=== PATIENT | female | born 1955 | race Caucasian/White ===

== ENCOUNTER 2016-12-16 10:46 | Emergency (ER) ==
[2016-12-16 10:59] VITALS: BP 170/113; TEMP 97.6; BMI 34.0
[2016-12-16] MEDS ORDERED: ANTIVERT PO STA (11:31)
[2016-12-16] MEDS ORDERED: VALIUM PO STA (11:31)
[2016-12-16 12:12] LABS: BASOPHILS % (AUTO) 0.5 % (0.0-3.0); EOSINOPHILS # (AUTO) 0.1 K/ul (0.0-0.7); EOSINOPHILS % (AUTO) 1.8 % (0.0-7.0); HEMATOCRIT 41.5 % (37.0-47.0); HEMOGLOBIN 14.8 g/dl (12.0-16.0); IMMATURE GRANULOCYTE % (AUTO) 0.3 % (0.0-5.0); LYMPHOCYTES # (AUTO) 0.9 K/uL (0.60-3.4); LYMPHOCYTES % (AUTO) 14.7 (10.0-50.0); MEAN CORPUSCULAR HEMOGLOBIN 30.8 pg (27.0-31.0); MEAN CORPUSCULAR HGB CONC 35.7 (31.8-35.4); MEAN CORPUSCULAR VOLUME 86.3 fl (81.0-99.0); MONOCYTES # (AUTO) 0.4 K/uL (0.4-2.0); MONOCYTES % (AUTO) 6.5 (0-10); NEUTROPHILS # (AUTO) 4.7 K/ul (2.0-6.9); NEUTROPHILS % (AUTO) 76.2; PLATELET COUNT 147 10^3/uL (140-440); RED BLOOD COUNT 4.81 10^6/ul (4.20-5.40); WHITE BLOOD COUNT 6.11 K/ul (4.6-10.2)
[2016-12-16 12:54] LABS: ALANINE AMINOTRANSFERASE 60 U/L (12-78); ALBUMIN 4.3 g/dL (3.4-5.0); ALBUMIN/GLOBULIN RATIO 1.59; ALKALINE PHOSPHATASE 48 U/L (53-141); ANION GAP 14.1; ASPARTATE AMINO TRANSFERASE 33 U/L (15-37); BILIRUBIN,TOTAL 2.28 mg/dL (0.00-1.20); BLOOD UREA NITROGEN 13 mg/dL (7-18); BUN/CREATININE RATIO 18.57; CALCIUM 9.5 mg/dL (8.2-10.2); CARBON DIOXIDE 25 mmol/L (23-31); CHLORIDE 108 mmol/L (98-107); CREATINE KINASE 131 U/L; GLUCOSE 107 mg/dL (82-115); POTASSIUM 4.1 mmol/L (3.5-5.10); SODIUM 143 mmol/L (136-145)
--- NOTE | 2016-12-16 13:10 | CT ---
Exam: CT of the brain without intravenous contrast. Comparison: 02/17/2008. Reason for exam: Positional vertigo. FINDINGS: No acute intracranial hemorrhage, mass effect, ventricular dilatation, or territorial inf arction. The quadrigeminal and ambient cisterns are patent. There is no extraaxial fluid collectio n. The calvarium is intact. The paranasal sinuses and mastoid air cells are unopacified. Impression: No acute intracranial findings. Report faxed to [phone] hours on 12/16/2016
[2016-12-16 13:16] LABS: CREATINE KINASE MB 1.6 ng/ml (0.0-3.6)
--- NOTE | 2016-12-16 13:25 | ED.PDOC ---
General ED Provider: Dr. FREDERICK HARRIS Chief Complaint: Dizziness Stated Complaint: dizziness Time Seen by Physician: 10:55 (no neuro deficit walked heel to te no ATXIA noted ) Mode of Arrival: Walk-In Information Source: Patient Exam Limitations: No limitations Primary Care Provider: OLIVIA MARTINEZ Nursing and Triage Documentation Reviewed and Agree: Yes (this morning) Neurological Complaint Exam - Dizziness Complaint/Exam Last Known Well: 9 am today Onset: Gradual Duration: present since am Symptoms Are: Still present Episodes Lasting: Hours Initial Severity: Mild Current Severity: Mild Character: Reports: Dizzy Aggravating: Reports: Position change Alleviating: Reports: Rest, Lying down Associated Signs and Symptoms: Denies: Nausea, Vomiting, Diaphoresis, Tinnitus, Chest pain, Short of air, Palpitations, Unsteady gait, GI blood loss, Visual changes, Decreased oral intake, Change in medication, Change in diet, OTC meds, Loss of balance Review of Systems - Review Of Systems Constitutional: Reports: No symptoms Eyes: Reports: No symptoms Ears, Nose, Mouth, Throat: Reports: No symptoms Respiratory: Reports: No symptoms Cardiac: Reports: No symptoms GI: Reports: No symptoms : Reports: No symptoms Musculoskeletal: Reports: No symptoms Skin: Reports: No symptoms Neurological: Reports: Other (vertigo) Endocrine: Reports: No symptoms Hematologic/Lymphatic: Reports: No symptoms All Other Systems: Reviewed and Negative Past Medical History - Past Medical History Previously Healthy: Yes Endocrine: Reports: Hypothyroid Cardiovascular: Reports: Hypertension Respiratory: Reports: None Hematological: Reports: None Gastrointestinal: Reports: None Genitourinary: Reports: None Neuro/Psych: Reports: None Musculoskeletal: Reports: None Cancer: Reports: None Last Menstrual Period: unknown - Surgical History General Surgical History: Reports: None - Family History Family History: Reports: None - Social History Smoking Status: Former smoker Hx Substance Use: No Alcohol Screening: Occasionally Physical Exam - Physical Exam Appearance: Well-appearing, No pain distress, Well-nourished Eyes: ROLY, EOMI, Conjunctiva clear ENT: Ears normal, Nose normal, Oropharynx normal Respiratory: Airway patent, Breath sounds clear, Breath sounds equal, Respirations nonlabored Cardiovascular: RRR, Pulses normal, No rub, No murmur GI/: Soft, Nontender, No masses, Bowel sounds normal, No Organomegaly Musculoskeletal: Normal strength, ROM intact, No edema, No calf tenderness Skin: Warm, Dry, Normal color Neurological: Sensation intact, Motor intact, Reflexes intact, Cranial nerves intact, Alert, Oriented Psychiatric: Affect appropriate, Mood appropriate Interpretation - Radiology Interpretation Radiology Interpretation By: Radiologist Radiology Results: No acute changes - 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4 Plt Count 147 Immature Gran % (Auto) 0.3 Neut % (Auto) 76.2 Lymph % (Auto) 14.7 Green % (Auto) 6.5 Eos % (Auto) 1.8 Baso % (Auto) 0.5 Immature Gran # (Auto) 0.0 Neut # 4.7 Lymph # 0.9 Green # 0.4 Eos # 0.1 Baso # 0.0 Sodium 143 Potassium 4.1 Chloride 108 H Carbon Dioxide 25 Anion Gap 14.1 BUN 13 Creatinine 0.70 Estimated GFR (MDRD) 85.00 BUN/Creatinine Ratio 18.57 Glucose 107 Calcium 9.5 Total Bilirubin 2.28 H AST 33 ALT 60 Alkaline Phosphatase 48 L Total Creatine Kinase 131 CK-MB (CK-2) 1.6 CK-MB (CK-2) % 1.26125 Troponin I < 0.0100 Total Protein 7.0 Albumin 4.3 Globulin 2.7 Albumin/Globulin Ratio 1.59 TSH 0.534 Free T4 1.16 Orders Category Date Time Status EKG-(ED ONLY) Stat CARDIO 12/16/16 11:31 Completed CBC W/ AUTO DIFF Stat LAB 12/16/16 12:00 Completed COMPREHENSIVE METABOLIC PANEL Stat LAB 12/16/16 12:00 Completed CREATINE KINASE Stat LAB 12/16/16 12:00 Completed FREE T4 (FREE THYROXINE) Stat LAB 12/16/16 12:00 Completed THYROID STIMULATING HORMONE Stat LAB 12/16/16 12:00 Completed TROPONIN I Stat LAB 12/16/16 12:00 Completed Diazepam [Valium] MEDS 12/16/16 11:31 Discontinued 5 mg PO ONCE STA Meclizine HCl [Antivert] MEDS 12/16/16 11:31 Discontinued 25 mg PO ONCE STA CT HEAD W/O CONTRAST Stat RADS 12/16/16 11:31 Completed Medications Discontinued Medications Generic Name Dose Route Start Last Admin Trade Name Francia PRN Reason Stop Dose Admin Diazepam 5 mg 12/16/16 11:31 12/16/16 11:54 Valium PO 12/16/16 11:32 5 mg ONCE STA Administration Meclizine HCl 25 mg 12/16/16 11:31 12/16/16 11:54 Antivert PO 12/16/16 11:32 25 mg ONCE STA Administration Vital Signs: Temp Pulse Resp BP Pulse Ox 12/16/16 10:48 97.6 F 85 20 170/113 H 96 Departure - Departure Time of Disposition: 13:27 Disposition: HOME SELF-CARE Discharge Problem: Dizziness Instructions: Vertigo (ED) Condition: Good Pt referred to PMD for follow-up: Yes Additional Instructions: Please call your Family Physician as soon as possible to schedule a follow-up appointment. Allergies/Adverse Reactions: Allergies codeine Adverse Reaction (Verified 04/26/13 18:15) hydromorphone [From Dilaudid] Adverse Reaction (Verified 12/16/16 10:57) Iodinated Contrast- Oral and IV Dye [Iodinated Contrast Media - IV Dye] Adverse Reaction (Verified 04/26/13 18:15) phenazopyridine HCl [From Pyridium] Adverse Reaction (Verified 04/26/13 18:15) Home Medications: Ambulatory Orders Cyclobenzaprine HCl [Flexeril] 10 mg PO DAILY 04/26/13 Levothyroxine Sodium [Synthroid] 150 mcg PO DAILY 04/26/13 Metoprolol Succinate [Toprol Xl] 25 mg PO BID 04/26/13 Piroxicam [Feldene] 20 mg PO DAILY 04/26/13 Ascorbic Acid [Vitamin C] 1,000 mg PO DAILY 12/16/16 Calcium Carb/Magnesium Cmb #10 [Kofi-Mag Tablet Chewable] 1 each PO DAILY Cholecalciferol (Vitamin D3) [Vitamin D3] 5,000 unit PO WEEKLY 12/16/16 Clonidine HCl [Catapres] 0.1 mg PO TID PRN 12/16/16 Lactobacillus Combo No.10 [Probiotic] 1 each PO DAILY 12/16/16 Losartan Potassium [Cozaar] 50 mg PO DAILY 12/16/16 Multivitamin [One Daily Multivitamin] 1 each PO DAILY 12/16/16
== END 2016-12-16 13:48 | disposition home or self-care (01) ==
LOC: ED 10:46
DX: R42 Dizziness and giddiness (principal); E03.9 Hypothyroidism, unspecified; I10 Essential (primary) hypertension; Z79.899 Other long term (current) drug therapy
CPT/HCPCS: 36415; 80053; 82550; 82553; 84439; 84443; 84484; 85025; 93005; 93010; 99283

== ENCOUNTER 2017-04-01 10:31 | Outpatient (CLI) ==
[2017-04-01 11:01] LABS: ANION GAP 14.1; BUN/CREATININE RATIO 23.94; CALCIUM 9.5 mg/dL (8.2-10.2); CREATININE 0.71 mg/dL (0.60-1.30); POTASSIUM 4.1 mmol/L (3.5-5.10)
== END 2017-04-01 10:32 | disposition home or self-care (01) ==
LOC: LAB 10:31
PROVIDERS: ATTEND Family Medicine
DX: I10 Essential (primary) hypertension (principal)
CPT/HCPCS: 36415; 80048

== ENCOUNTER 2017-10-25 07:28 | Outpatient (CLI) | payer OTHER | END 2017-10-25 07:29 | disposition home or self-care (01) | LOC: LAB 07:28 | PROVIDERS: ATTEND Internal Medicine Rheumatology | DX: E03.9 Hypothyroidism, unspecified (principal); Z00.00 Encounter for general adult medical examination without abnormal findings; R00.0 Tachycardia, unspecified; E89.40 Asymptomatic postprocedural ovarian failure; K76.0 Fatty (change of) liver, not elsewhere classified; R73.01 Impaired fasting glucose; I10 Essential (primary) hypertension; E78.5 Hyperlipidemia, unspecified; M06.9 Rheumatoid arthritis, unspecified | CPT/HCPCS: 36415; 80053; 80061; 82306; 83036; 84439; 84443; 85025; 86803 ==

== ENCOUNTER 2018-10-20 09:12 | Emergency (ER) | payer OTHER ==
[2018-10-20 09:26] VITALS: BP 171/94; TEMP 99.5; BMI 35.6
--- NOTE | 2018-10-20 10:21 | ED.PDOC ---
General ED Provider: Dr. FREDERICK HARRIS Chief Complaint: Abdominal Pain Stated Complaint: Epigastric/abdominal pain radiating to the sides but not to the thoracic spine. Patient has history of hiatal hernia and in the past has had appendectomy and cholecystectomy. Patient denies any abdominal trauma and chest pain. Time Seen by Physician: 09:15 Mode of Arrival: Walk-In Information Source: Patient Exam Limitations: No limitations Primary Care Provider: OLIVIA MARTINEZ Nursing and Triage Documentation Reviewed and Agree: Yes Does patient meet sepsis criteria?: No System Inflammatory Response Syndrome: Not Applicable Sepsis Protocol: For patient's 13 years and over: Temp is 96.8 and below OR 101 and greater Pulse >90 BPM Resp >20/minute Acutely Altered Mental Status Are patient's symptoms suggestive of a new infection, such as: -Pneumonia -Skin, Soft Tissue -Endocarditis -UTI -Bone, Joint Infection -Implantable Device -Acute Abdominal Infection -Wound Infection -Meningitis -Blood Stream Catheter Infection -Unknown GI Complaint Exam - Abdominal Pain Complaint/Exam Onset: Gradual Duration: chronic issue but worse today Symptoms Are: Still present Timing: Intermittent Initial Severity: Moderate Current Severity: Mild Location of Pain: Epigastric Radiates To: Denies: Chest, Back, Flank, LLQ, RLQ, Inguinal Character: Reports: Aching Aggravating: Reports: None Alleviating: Reports: None Associated Signs and Symptoms: Denies: Diaphoresis, Fever, Cough, Chest pain, Dizziness, Back pain, Constipation, Blood in stool, Dysuria, Urinary frequency, Decreased urine output, Decreased appetite, Vaginal bleeding, Vaginal discharge , Nausea, Vomiting, Diarrhea, Sore throat, Decreased activity Related History: Reports: Similar episode AAA Risk Factors: Reports: Hypertension Cardiac Risk Factors: Reports: Hypertension Ovarian Torsion Risk Factors: Reports: None Surgical Obstruction Risk Factors: Reports: None Related Surgical History: Reports: Cholecystectomy, Appendectomy Patient Rh Status: Unknown Abdominal Findings: Present: None Differential Diagnoses: Bowel Obstruction, Constipation, Diverticulitis, Gastroenteritis, Pancreatitis Review of Systems - Review Of Systems Constitutional: Reports: No symptoms Eyes: Reports: No symptoms Ears, Nose, Mouth, Throat: Reports: No symptoms Respiratory: Reports: No symptoms Cardiac: Reports: No symptoms GI: Reports: Abdominal pain : Reports: No symptoms Musculoskeletal: Reports: No symptoms Skin: Reports: No symptoms Neurological: Reports: No symptoms Endocrine: Reports: No symptoms Hematologic/Lymphatic: Reports: No symptoms All Other Systems: Reviewed and Negative Past Medical History - Past Medical History Previously Healthy: Yes Endocrine: Reports: Hypothyroid Cardiovascular: Reports: Hypertension Respiratory: Reports: None Hematological: Reports: None Gastrointestinal: Reports: None Genitourinary: Reports: None Neuro/Psych: Reports: None Musculoskeletal: Reports: None Cancer: Reports: None Last Menstrual Period: hysterectomy - Surgical History General Surgical History: Reports: None - Family History Family History: Reports: None - Social History Smoking Status: Former smoker Hx Substance Use: No Alcohol Screening: None Physical Exam - Physical Exam Appearance: Well-appearing, No pain distress, Well-nourished Eyes: ROLY, EOMI, Conjunctiva clear ENT: Ears normal, Nose normal, Oropharynx normal Respiratory: Airway patent, Breath sounds clear, Breath sounds equal, Respirations nonlabored Cardiovascular: RRR, Pulses normal, No rub, No murmur GI/: Soft, Nontender, No masses, Bowel sounds normal, No Organomegaly Musculoskeletal: Normal strength, ROM intact, No edema, No calf tenderness Skin: Warm, Dry, Normal color Neurological: Sensation intact, Motor intact, Reflexes intact, Cranial nerves intact, Alert, Oriented Psychiatric: Affect appropriate, Mood appropriate Critical Care Note - Critical Care Note Total Time (mins): 0 Course - Course Hematology/Chemistry: 10/20/18 10:05 10/20/18 10:05 Orders, Labs, Meds: Lab Review 10/20/18 10/20/18 10:05 10:05 WBC 5.16 RBC 4.96 Hgb 15.0 Hct 44.3 MCV 89.3 MCH 30.2 MCHC 33.9 RDW Coeff of Camacho 12.1 Plt Count 161 Immature Gran % (Auto) 0.2 Neut % (Auto) 66.8 Lymph % (Auto) 23.3 [place] % (Auto) 6.8 Eos % (Auto) 2.5 Baso % (Auto) 0.4 Immature Gran # (Auto) 0.0 Neut # (Auto) 3.5 Lymph # (Auto) 1.2 [place] # (Auto) 0.4 Eos # (Auto) 0.1 Baso # (Auto) 0.0 Sodium 140.5 Potassium 4.31 Chloride 102.8 Carbon Dioxide 28.3 Anion Gap 13.71 BUN 13.1 Creatinine 0.54 L Estimated GFR (MDRD) 114.00 BUN/Creatinine Ratio 24.25 Glucose 114.7 H Calcium 10.22 H Total Bilirubin 1.72 H AST 28.6 ALT 35.2 H Alkaline Phosphatase 48.4 L Total Protein 7.92 Albumin 4.98 Globulin 2.94 Albumin/Globulin Ratio 1.69 Amylase 105.1 Lipase 144.8 Orders Category Date Time Status AMYLASE Stat LAB 10/20/18 10:05 Completed CBC W/ AUTO DIFF Stat LAB 10/20/18 10:05 Completed COMPREHENSIVE METABOLIC PANEL Stat LAB 10/20/18 10:05 Completed LIPASE Stat LAB 10/20/18 10:05 Completed URINALYSIS C & S IF INDICATED Stat LAB 10/20/18 09:[address] ABDOMEN/PELVIS WO CONTRAST Stat RADS 10/20/18 09:[address] CHEST W/O CONTRAST Stat RADS 10/20/18 09:43 Completed Vital Signs: Temp Pulse Resp BP Pulse Ox 10/20/18 09:13 99.5 F 73 20 171/94 H 92 L Departure - Departure Time of Disposition: 10:50 Disposition: HOME SELF-CARE Discharge Problem: Abdominal pain, Hiatal hernia, Kidney stone on right side Instructions: Acute Abdominal Pain (ED), Hiatal Hernia (ED), Kidney Stones (ED) Condition: Good Pt referred to PMD for follow-up: Yes IPMP verified?: No Additional Instructions: Please call your Family Physician as soon as possible to schedule a follow-up appointment. Please make sure you follow up with your doctor. I would prefer to conduct a contrast study, but you are allergic to the . Please return if the pain worsens or your status changes. Allergies/Adverse Reactions: Allergies codeine Adverse Reaction (Verified 10/20/18 09:24) hydromorphone [From Dilaudid] Adverse Reaction (Verified 10/20/18 09:24) Iodinated Contrast- Oral and IV Dye [Iodinated Contrast Media - IV Dye] Adverse Reaction (Verified 10/20/18 09:24) phenazopyridine HCl [From Pyridium] Adverse Reaction (Verified 10/20/18 09:24) Home Medications: Ambulatory Orders Cyclobenzaprine HCl [Flexeril] 10 mg PO BEDTIME 04/26/13 Levothyroxine Sodium [Synthroid] 175 mcg PO BEDTIME 04/26/13 Metoprolol Succinate [Toprol Xl] 100 mg PO BEDTIME 12/26/13 Piroxicam [Feldene] 20 mg PO BEDTIME 04/26/13 Ascorbic Acid [Vitamin C] 1,000 mg PO BEDTIME 12/16/16 Calcium Carb/Magnesium Ox,Carb [Kofi-Mag Tablet Chewable] 1 each PO BEDTIME 12/16 Lactobacillus Combo No.10 [Probiotic] 1 each PO BEDTIME 12/16/16 Losartan Potassium [Cozaar] 50 mg PO BEDTIME 12/16/16 Ubidecarenone [Co Q-10] 100 mg PO BEDTIME 10/20/18 Vitamin D3/Vitamin K2 (Mk4) [K2 Plus D3 Tablet] 1 each PO BEDTIME 10/20/18
--- NOTE | 2018-10-20 10:39 | CT ---
EXAM: CT of the abdomen pelvis without contrast History: Epigastric abdominal pain, history of appendectomy and bowel surgery. Technique: Multiplanar CT images through the abdomen pelvis were obtained without the administration of IV contrast Findings: Small hiatal hernia. Subsegmental atelectasis seen within the lower lungs. No acute osse ous abnormalities. Status post cholecystectomy. The liver demonstrates nodular surface contour. There are several hypo attenuating liver lesions measuring up to 1.8 cm which are indeterminate. Spleen is upper limits of normal in size. 2 mm calculus within the right kidney. No left renal calculi. No hydronephrosis. No ureteral calculi. No peripancreatic inflammation. Adrenal glands are unremarkable. No bowel obs truction. No free air and no ascites. No bladder wall thickening. No perirectal inflammation. Mos t of the colon is not well distended. Status post appendectomy. No abdominal aortic aneurysm. No p athologically enlarged lymph nodes. Impression: 1. No acute intra-abdominal or pelvic process. 2. Nonobstructing right nephrolithiasis. 3. Subtle nodular surface contour of the liver could indicate early changes of cirrhosis. 4. Indeterminate hypoattenuating liver lesions. Recommend further evaluation with outpatient MRI li brenna mass protocol. 5. Small hiatal hernia
--- NOTE | 2018-10-20 10:46 | CT ---
Examination: Chest CT without contrast Clinical history: Lower chest and epigastric pain Detailed thin slice noncontrast axial images extend from neck base through the hemidiaphragms. Left lobe of the thyroid is larger than the right. Subglottic trachea is of adequate caliber. No signifi cant superior mediastinal, distal peritracheal, or or aortopulmonic window adenopathy. No aortic seg ment dilatation. Pulmonary artery caliber is satisfactory. No enlargement of the heart. Small hiat al hernia. A round 1 cm low density focus is noted in the medial aspect the left lobe of the liver. Density measurements do not suggest the presence of a cyst. No other nodules are noted through the upper one half of the liver. Spleen does not appear enlarged. No adrenal mass. Lung parenchymal window setting review shows emphysematous changes in the upper lobes, right greater than left. There is no coalescent infiltrate. Subsegmental atelectasis in the on the left lingula. There is additional atelectasis in the central left lower lobe. Minimal atelectasis in the right me dial basilar region. No vascular congestion. Impression: 1. 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 Small areas of subsegmental a telectasis. 2. No cardiac enlargement. Coronary artery calcific change or pericardial effusion. 3. Small to moderate-sized hiatal hernia. 4. Small nonspecific 1 cm, low density nodule in medial left liver lobe. No comparison abdomen CT e xaminations.
== END 2018-10-20 11:05 | disposition home or self-care (01) ==
LOC: ED 09:12
DX: N20.0 Calculus of kidney (principal); R10.13 Epigastric pain; K44.9 Diaphragmatic hernia without obstruction or gangrene; I10 Essential (primary) hypertension; E03.9 Hypothyroidism, unspecified; Z87.19 Personal history of other diseases of the digestive system; Z79.899 Other long term (current) drug therapy
CPT/HCPCS: 36415; 80053; 81001; 82150; 83690; 85025; 93005; 93010; 99283

== ENCOUNTER 2018-10-24 09:05 | Day surgery (SDC) ==
[2018-10-24 10:25] VITALS: TEMP 97.5
[2018-10-24] MEDS ORDERED: DIPRIVAN 20 ML VIAL IVP ONE (11:00)
[2018-10-24] MEDS ORDERED: VERSED ONE (11:00)
--- NOTE | 2018-10-25 09:38 | OP ---
INDICATIONS FOR PROCEDURE: 63-year-old female presents for endoscopy exam. She had a couple episodes of acute epigastric pain. She described it as a sharp stabbing pain. She is asymptomatic now. She presents for endoscopy. MEDICATIONS: SEE ANESTHESIA NOTES. PROCEDURE: 1. ENDOSCOPY, ESOPHAGEAL BIOPSY, MACANESE DILATATION. REPORT: The risks, benefits, alternatives and limitations were discussed in detail with the patient. Informed consent was obtained. After adequate sedation was achieved, the video endoscope was introduced in the posterior pharynx and esophagus under direct vision and I easily advanced down to the second portion of the duodenum. I then slowly withdrew. The duodenal mucosa appeared unremarkable as did the duodenal bulb. The antrum and body were relatively unremarkable. The scope was retroflexed to look at the cardia and fundus which revealed a small hiatal hernia. The scope was anteflexed and withdrawn back through the esophagus. There was a 2 to 3 cm sliding hiatal hernia. At the GE junction there was one break in the mucosa consistent with mild Grade A reflux esophagitis. There was also a circumferential esophageal stricture causing mild luminal narrowing. I did biopsy the area of esophagitis for histological review. The remaining esophagus appeared unremarkable. I then advanced the scope back down into the gastric lumen. I placed a guidewire and then withdrew the scope. Over the guidewire I easily advanced the 54 [place] dilator. The patient tolerated the procedure well with stable vital signs and pulse oximetry throughout. Of note, image capturing was not available during this procedure so no pictures were obtained. IMPRESSION: 1. LA Grade A reflux esophagitis. 2. Distal esophageal stricture dilated as above. 3. Small 2 to 3 cm sliding hiatal hernia. RECOMMENDATIONS: 1. Strict reflux precautions. 2. Await esophageal biopsy results. 3. She was prescribed Omeprazole yesterday and I will advise her to take this every morning as directed. 4. Followup in the office with Kay as scheduled in approximately four weeks. CC: DR. MICHELLE GONZALEZ
[2018-10-25 11:40] VITALS: BP 142/58
== END 2018-10-24 12:15 | disposition home or self-care (01) ==
LOC: SURG 09:05
PROVIDERS: ATTEND Internal Medicine Gastroenterology
DX: R10.13 Epigastric pain (principal); K20.9 Esophagitis, unspecified; K22.2 Esophageal obstruction

== ENCOUNTER 2023-11-28 02:52 | Observation (INO) ==
--- NOTE | 2023-11-28 03:28 | ED.PDOC ---
General ED Provider: Dr. FREDERICK NASCIMENTO MD Chief Complaint: Dizziness Stated Complaint: Patient history of hypertension and hypothyroidism states she awakened from sleep with dizziness and lightheadedness exacerbated by motion of her head. Patient had transient chest tightness associate with nausea and dry heaves, denies vomiting, dyspnea, palpitations, diaphoresis, diarrhea, urinary symptoms abdominal pain. Time Seen by Provider: 11/28/23 03:16 Mode of Arrival: Ambulance Information Source: Patient Exam Limitations: No limitations Primary Care Provider: OLIVIA MARTINEZ Nursing and Triage Documentation Reviewed and Agree: Yes What is Opioid Naive?: *Opioid Naive implies the patient is not already taking opioids or not chronically receiving opioids on a daily basis. *PRN dosing is not "usually" associated with tolerance. *Patients are at higher risk of over-sedation and aspiration. What is Opioid Tolerant?: *Opioid Tolerance implies less than the expected response to an opioid. *Acquired tolerance is defined by the patient taking 60mg of oral morphine daily (or equianalgesic dose of another opioid) for 1 week or more. *Often associated with chronic pain. *May take more than usual dose to achieve desired pain control. Review of Systems Review Of Systems Constitutional: Reports Weakness Eyes: Reports No symptoms Ears, Nose, Mouth, Throat: Reports No symptoms Respiratory: Reports No symptoms Cardiac: Reports No symptoms GI: Reports Nausea : Reports No symptoms Musculoskeletal: Reports No symptoms Skin: Reports No symptoms Neurological: Reports Other (Lightheadedness and dizziness) Endocrine: Reports No symptoms Hematologic/Lymphatic: Reports No symptoms All Other Systems: Reviewed and Negative [facility] Medical History Thyroid disease E07.9 - Disorder of thyroid, unspecified (ICD-10) 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) HTN (hypertension) I10 - Essential (primary) hypertension (ICD-10) Left ventricular dysfunction I51.9 - Heart disease, unspecified (ICD-10) Family History Other No pertinent family history Social History Smoking and tobacco status: Never smoker Surgical History H/O: hysterectomy Z90.710 - Acquired absence of both cervix and uterus (ICD-10) Hx of appendectomy Z90.49 - Acquired absence of other specified parts of digestive tract (ICD- 10) Hx of cholecystectomy Z90.49 - Acquired absence of other specified parts of digestive tract (ICD- 10) Female Reproductive History Menstrual Hx Hysterectomy: Yes Hx Tubal Ligation: No Physical Exam Physical Exam Appearance: Reports Well-appearing Ill-appearing: None Pain Distress: None Eyes: Reports EOMI and Conjunctiva clear ENT: Reports Ears normal, Nose normal and Oropharynx normal Neck: Supple Respiratory: Reports Airway patent, Breath sounds clear and Breath sounds equal Cardiovascular: Reports RRR, Pulses normal, No rub and No murmur GI/: Reports Soft, Nontender and No masses Musculoskeletal: Reports Normal strength, ROM intact and No edema Skin: Reports Warm and Dry Neurological: Reports Sensation intact, Motor intact, Reflexes intact, Cranial nerves intact and Alert Psychiatric: Reports Affect appropriate and Mood appropriate Critical Care Note Critical Care Note Total Critical Care Time (mins): 0 Course Course 11/28/23 03:28 11/28/23 03:28 Orders, Labs, Meds: Lab Review 11/28/23 11/28/23 11/28/23 03:28 05:08 06:35 WBC 7.59 RBC 4.89 Hgb 14.6 Hct 43.5 MCV 89.0 MCH 29.9 MCHC 33.6 RDW Coeff of Camacho 12.5 Plt Count 149 Immature Gran % (Auto) 0.4 Neut % (Auto) 78.8 H Lymph % (Auto) 12.4 [place] % (Auto) 6.6 Eos % (Auto) 1.4 Baso % (Auto) 0.4 Neut # (Auto) 6.0 Lymph # (Auto) 0.9 [place] # (Auto) 0.5 Eos # (Auto) 0.1 Baso # (Auto) 0.0 Immature Gran # (Auto) 0.0 Sodium 138.6 Potassium 3.87 Chloride 105.8 Carbon Dioxide 22.9 Anion Gap 13.77 BUN 17.1 H Creatinine 0.53 L Estimated GFR (MDRD) 115.00 BUN/Creatinine Ratio 32.26 Glucose 147.5 H Calcium 9.86 Magnesium 1.81 Total Bilirubin 1.58 H AST 36.0 ALT 26.7 Alkaline Phosphatase 34.4 L Troponin I < 0.012 < 0.012 Total Protein 7.69 Albumin 4.92 Globulin 2.77 Albumin/Globulin Ratio 1.77 Urine Color Yellow Urine Clarity Clear Urine pH 7.5 Ur Specific [place] 1.020 Urine Protein Negative Urine Glucose (UA) Negative Urine Ketones Negative Urine Blood Trace-intact H Urine Nitrite Negative Urine Bilirubin Negative Urine Urobilinogen 0.2 Ur Leukocyte Esterase Negative Urine Microscopic RBC 0-2 Urine Microscopic WBC 0-2 Ur Squamous Epith Cells 0-2 Orders Category Date Time Status EKG-(ED ONLY) Stat CARDIO 11/28/23 03:28 Completed Operations [place] [ED CONTACT WORKER LITHOGRAPHY APPLIED] .ONCE EMERGENCY 11/28/23 03:28 Active CBC W/ AUTO DIFF Stat LAB 11/28/23 03:28 Completed CMP [COMPREHENSIVE METABOLIC PANEL] Stat LAB 11/28/23 03:28 Completed MAGNESIUM Stat LAB 11/28/23 03:28 Completed TROPONIN I Stat LAB 11/28/23 03:28 Completed TROPONIN I Stat LAB 11/28/23 06:35 Completed URINALYSIS C & S IF INDICATED Stat LAB 11/28/23 05:08 Completed Hydralazine HCl Meds 11/28/23 03:28 Discontinued 20 mg IVP ONCE STA Meclizine HCl [Antivert] Meds 11/28/23 04:05 Discontinued 25 mg PO ONCE STA Ondansetron HCl/Pf [Zofran 4 mg/2 ml] Meds 11/28/23 04:29 Discontinued 4 mg IM ONCE STA Ondansetron HCl/Pf [Zofran 4 mg/2 ml] Meds 11/28/23 03:28 Discontinued 4 mg IVP ONCE STA Pantoprazole Sodium [Protonix] Meds 11/28/23 03:28 Discontinued 40 mg IVP ONCE ONE Sodium Chloride 0.9% [Sodium Chloride] 1,000 ml Meds 11/28/23 03:28 Active IV 100 mls/hr CHEST, 1V AP ONLY Stat RADS 11/28/23 04:[address] HEAD W/O CONTRAST Stat RADS 11/28/23 04:32 Ordered Medications Generic Name Dose Route Start Last Admin Trade Name Freq PRN Reason Stop Dose Admin Sodium Chloride 1,000 mls @ 100 mls/hr 11/28/23 03:28 11/28/23 03:40 Sodium Chloride IV 11/28/23 13:27 100 mls/hr .Q10H ONE Administration Discontinued Medications Generic Name Dose Route Start Last Admin Trade Name Francia PRN Reason Stop Dose Admin Hydralazine HCl 20 mg 11/28/23 03:28 11/28/23 03:42 Hydralazine Hcl 20 Mg/Ml Sdv IVP 11/28/23 03:29 20 mg ONCE STA Administration Meclizine HCl 25 mg 11/28/23 04:05 11/28/23 04:24 Meclizine Hcl 25 Mg Tablet PO 11/28/23 04:06 25 mg ONCE STA Administration Ondansetron HCl 4 mg 11/28/23 03:28 11/28/23 03:41 Ondansetron Hcl/Pf 4 Mg/2 Ml Sdv IVP 11/28/23 03:29 4 mg ONCE STA Administration Ondansetron HCl 4 mg 11/28/23 04:29 Ondansetron Hcl/Pf 4 Mg/2 Ml Sdv IM 11/28/23 04:30 ONCE STA Pantoprazole Sodium 40 mg 11/28/23 03:28 11/28/23 03:41 Pantoprazole Sodium 40 Mg Vial IVP 11/28/23 03:29 40 mg ONCE ONE Administration Vital Signs: Temp Pulse Resp BP Pulse Ox 11/28/23 02:56 97.4 F L 74 16 185/110 H 94 L Discharge Plan Discharge Patient Disposition: PLACED OBSERVATION Discharge Problem: Intractable nausea Chest pain Qualifiers: Chest pain type: other chest pain Qualified Code(s): R07.89 - Other chest pain Acute labyrinthitis Qualifiers: Laterality: unspecified laterality Qualified Code(s): H83.09 - Labyrinthitis, unspecified ear Prescriptions: No Action cyclobenzaprine 10 MG tablet 5 mg PO BEDTIME levothyroxine [Synthroid] 150 MCG tablet 150 mcg PO BEDTIME metoprolol succinate 25 MG tablet extended release 24 hr 100 mg PO BEDTIME piroxicam [Feldene] 20 MG capsule 20 mg PO BEDTIME magnesium oxide 420 mg Tablet 400 mg PO DAILY dodie root extract 50 mg Tablet 1,100 mg PO DAILY losartan 50 MG tablet 50 mg PO BEDTIME coenzyme Q10 [Co Q-10] 100 MG capsule 100 mg PO BEDTIME K2 Plus D3 1 EACH tablet 1 ea PO BEDTIME amlodipine 2.5 mg tablet 2.5 mg PO DAILY cyclobenzaprine 5 mg tablet 5 mg PO BEDTIME fluconazole 150 mg tablet 150 mg PO Q3D Qty: 2 0RF Did you review [place] RE[place] for ALL controlled substances?: Not Applicable ED Provider: FREDERICK NASCIMENTO Condition: Stable Physician Progress Note: Patient states he awakened sleep with dizziness lightheadedness which was exacerbation most reviewed. Patient denies headache, blurred vision, slurred speech. Patient also complaining of nausea and dry heaves associated with transient chest tightness. Denies chest pain from emergency room denies vomiting, diarrhea, urinary symptoms. Patient given IV fluids 1 L at 100 MLS/hour, Zofran 4 mg, and Protonix 40 mg IV and hydralazine 20 mg IV for Blood pressure 203/111 Blood pressure improved to 176/89 Patient administered clonidine 0.1 mg orally 0620-blood pressure 1 4284 0321 EKG interpretation by myself consistent normal sinus rhythm rate of 69- there is inferolateral ST wave changes noted. No change from the previous EKG from 04/30/2022. Z 0547-EKG no change normal sinus rhythm positive for infarct age indeterminant rate of 86. Patient denies coughing Portable chest x-ray interpretation per radiologist consistent with bibasilar atelectasis and or pneumonia All laboratory data reviewed and are within normal limits white blood cell count 7500, initial troponin 0.012. 0624-repeat troponin 0.012 Patient had no improvement in motion sickness associated with intractable dry heaves and nausea Differential diagnosis: 1) chest pain 2) acute labyrinthitis 3) intractable nausea Discussed with hospitalist Daphne Saucedo at 0630 for observation
[2023-11-28 03:36] LABS: BASOPHILS % (AUTO) 0.4 % (0.0-3.0); EOSINOPHILS # (AUTO) 0.1 K/ul (0.0-0.7); EOSINOPHILS % (AUTO) 1.4 % (0.0-7.0); HEMATOCRIT 43.5 % (37.0-47.0); HEMOGLOBIN 14.6 g/dl (12.0-16.0); IMMATURE GRANULOCYTE % (AUTO) 0.4 % (0.0-5.0); LYMPHOCYTES # (AUTO) 0.9 K/uL (0.60-3.4); LYMPHOCYTES % (AUTO) 12.4 (10.0-50.0); MEAN CORPUSCULAR HEMOGLOBIN 29.9 pg (27.0-31.0); MEAN CORPUSCULAR HGB CONC 33.6 (31.8-35.4); MONOCYTES # (AUTO) 0.5 K/uL (0.4-2.0); MONOCYTES % (AUTO) 6.6 (0-10); NEUTROPHILS % (AUTO) 78.8 % (42.2-75.2); PLATELET COUNT 149 10^3/uL (140-440); RDW COEFFICIENT OF VARIATION 12.5 % (11.6-14.8); RED BLOOD COUNT 4.89 10^6/ul (4.20-5.40); WHITE BLOOD COUNT 7.59 K/ul (4.6-10.2)
[2023-11-28] MEDS: SODIUM CHLORIDE 1,000 ML IV ONE (03:40)
[2023-11-28] MEDS: ZOFRAN 4 MG/2 ML IVP STA ×2 (03:41→07:25)
[2023-11-28] MEDS: PROTONIX IVP ONE (03:41)
[2023-11-28] MEDS: HYDRALAZINE HCL IVP STA (03:42)
[2023-11-28 03:45] LABS: ALANINE AMINOTRANSFERASE 26.7 U/L (0-35); ALBUMIN 4.92 g/dL (3.5-5.0); ALKALINE PHOSPHATASE 34.4 U/L (53-141); BILIRUBIN,TOTAL 1.58 mg/dL (0.2-1.3); BLOOD UREA NITROGEN 17.1 mg/dL (7-17); CALCIUM 9.86 mg/dL (8.4-10.2); CARBON DIOXIDE 22.9 mmol/L (22-30.0); CHLORIDE 105.8 mmol/L (98-107); CREATININE 0.53 mg/dL (0.60-1.30); GLUCOSE 147.5 mg/dL (74-106); MAGNESIUM 1.81 mg/dL (1.6-2.3); POTASSIUM 3.87 mmol/L (3.5-5.1); SODIUM 138.6 mmol/L (134.5-145); TOTAL PROTEIN 7.69 g/dL (6.3-8.2)
[2023-11-28 03:57] LABS: TROPONIN I < 0.012 ng/ml (0.0000-0.120)
[2023-11-28] MEDS: ANTIVERT PO STA (04:24)
[2023-11-28 05:32] LABS: BILIRUBIN,URINE Negative (NEGATIVE); CLARITY,URINE Clear (CLEAR); COLOR,URINE Yellow (YELLOW); GLUCOSE, URINE (UA) Negative (NEGATIVE); KETONES,URINE Negative (NEGATIVE); LEUKOCYTE ESTERASE ,URINE Negative (NEGATIVE); NITRITE,URINE Negative (NEGATIVE); PH,URINE 7.5 (5-9); PROTEIN,URINE Negative (NEGATIVE); URINE, BLOOD Trace-intact (NEGATIVE); UROBILINOGEN,URINE 0.2 (0.2)
[2023-11-28 05:37] LABS: SQUAMOUS EPITHELIAL CELL,UR 0-2 (0-5); URINE RBC, MICROSCOPIC 0-2 (0-2); URINE WBC, MICROSCOPIC 0-2 (0-2)
--- NOTE | 2023-11-28 05:43 | DI ---
EXAM: AP CHEST. HISTORY: Cough. FINDINGS: The bones are unremarkable. The cardiac silhouette is enlarged. The pulmonary vasculature is within normal limits. The costophrenic angles are clear. There is minimal bibasilar atelectasis and/or pneumonia. Impression: Bibasilar atelectasis and/or pneumonia. Cardiomegaly.
[2023-11-28] MEDS: ZOFRAN 4 MG/2 ML IM STA (07:14)
[2023-11-28] MEDS: ACETAMINOPHEN 1,000 MG/100 ML BAG IV ONE (07:25)
[2023-11-28 07:38] LABS: SARS COV-2 RNA RAPID NAAT NEGATIVE (NEGATIVE)
[2023-11-28] MEDS: REGLAN IVP PRN (08:50)
[2023-11-28 09:32] VITALS: BMI 36.5
[2023-11-28] MEDS: TORADOL IVP ONE (09:50)
--- NOTE | 2023-11-28 10:59 | PCM ---
Date of Service Date Seen by Provider: 11/28/23 Time Seen by Provider: 09:15 Admit Day/Time Admission Date: 11/28/23 Admission Time: 09:00 Reason for Admission Chief Complaint: CHEST PAIN, ACUTE LABYRINTHITIS, INTRACT NAUSEA Hospital Provider Hospital Provider: SANDY SHARP PA-C, [facility] Primary Care Physician Primary Care Physician: OLIVIA MARTINEZ History of Present Illness History of Present Illness: 68 yo female presented to the ER with dizziness, nausea, vomiting, and chest pain. Patient states that symptoms came on suddenly around 9 pm last night and continued to worsen. Concerned that she was having a stroke. Did not have any neurological deficits. Vision was never blurry and describes it as the room was spinning. Has pmh of vertigo in the past. Denies being sick prior to last night. States chest pain started after multiple episodes of vomiting. Attributes to anxiety. Resolved at this time. Dizziness has improved but is still present. Troponin x2 negative. Required multiple doses of zofran and a dose of meclizine to help with vomiting. Still nauseated at this time. Admitted to med/surg observation. Case Discussed With Case Discussed With: Patient's case was discussed with the ER Physicians, Dr. Sanches. 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) HTN (hypertension) I10 - Essential (primary) hypertension (ICD-10) Left ventricular dysfunction I51.9 - Heart disease, unspecified (ICD-10) Surgical History H/O: hysterectomy Z90.710 - Acquired absence of both cervix and uterus (ICD-10) Hx of appendectomy Z90.49 - Acquired absence of other specified parts of digestive tract (ICD- 10) Hx of cholecystectomy Z90.49 - Acquired absence of other specified parts of digestive tract (ICD- 10) Family History FATHER Diabetes Mother Heart valve disease Social History Smoking and tobacco status: Never smoker Allergies Allergies Allergy/AdvReac Type Severity Reaction Status Date / Time codeine AdvReac Nausea Verified 11/28/23 03:08 hydromorphone [From Dilaudid] AdvReac HALLUCINATIONS/HEART Verified 11/28/23 03:08 RACES Iodinated Contrast Media AdvReac Anaphylaxis Verified 11/28/23 03:08 [Iodinated Contrast Media - IV Dye] phenazopyridine HCl AdvReac Nausea Verified 11/28/23 03:08 [From Pyridium] sulfamethoxazole AdvReac LIPS Verified 11/28/23 03:08 [From Bactrim] Swelling trimethoprim [From Bactrim] AdvReac LIPS Verified 11/28/23 03:08 Swelling Current Medications Home Medications cyclobenzaprine 10 mg tablet 5 mg PO BEDTIME 04/26/13 [History Confirmed 11/28/23 Last Taken 10/23/18] levothyroxine 150 mcg tablet (Synthroid) 150 mcg PO BEDTIME 04/26/13 [History Confirmed 11/28/23 Last Taken 10/23/18] metoprolol succinate 25 mg tablet,extended release 24 hr 100 mg PO DAILY 04/26/13 [History Confirmed 11/28/23 Last Taken 10/23/18] piroxicam 20 mg capsule (Feldene) 20 mg PO 3 TIMES PER WEEK 04/26/13 [History Confirmed 11/28/23 Last Taken 10/23/18] losartan 50 mg tablet 50 mg PO DAILY 12/16/16 [History Confirmed 11/28/23 Last Taken 10/23/18] cholecalciferol (vit D3) 1,000 unit-vitamin K2 (MK4) 100 mcg tablet (K2 Plus D3) 1 ea PO BEDTIME 10/20/18 [History Confirmed 11/28/23 Last Taken 10/23/18] coenzyme Q10 100 mg capsule (Co Q-10) 50 mg PO BEDTIME 10/20/18 [History Confirmed 11/28/23 Last Taken 10/23/18] magnesium oxide 420 mg tablet 400 mg PO DAILY 08/11/21 [History Confirmed 11/28/23 Last Taken Unknown] dodie root extract 50 mg tablet 1,100 mg PO DAILY 05/01/22 [History Confirmed 11/28/23 Last Taken Unknown] amlodipine 2.5 mg tablet 2.5 mg PO DAILY 09/04/23 [History Confirmed 11/28/23 Last Taken Unknown] cyclobenzaprine 5 mg tablet 5 mg PO BEDTIME 09/04/23 [History Confirmed 11/28/23 Last Taken Unknown] vitamin C 500 mg-quercetin 250 mg-bioflavonoids, citrus 33 mg capsule (Quercetin Complex) 1 cap PO DAILY 11/28/23 [History Confirmed 11/28/23 Last Taken Unknown] Home Amlodipine Besylate (Amlodipine Besylate 5 Mg Tablet) 2.5 mg PO DAILY MARIANNA Amoxicillin/Clavulanate Potassium (Amoxicillin/Potassium Clav 875/125 Mg Tablet) 1 tab PO Q12HR MARIANNA Stop: 12/01/23 20:59 Cyclobenzaprine HCl (Cyclobenzaprine Hcl 10 Mg Tablet) 5 mg PO BEDTIME MARIANNA Sodium Chloride (Sodium Chloride) 1,000 mls @ 100 mls/hr IV .Q10H ONE Stop: 11/28/23 13:27 Last Admin: 11/28/23 03:40 Dose: 100 mls/hr Levothyroxine Sodium (Levothyroxine Sodium 100 Mcg Tablet) 100 mcg PO BEDTIME [facility] Levothyroxine Sodium (Levothyroxine Sodium 50 Mcg Tablet) 50 mcg PO BEDTIME [facility] Losartan Potassium (Losartan Potassium 25 Mg Tablet) 50 mg PO DAILY [facility] Meclizine HCl (Meclizine Hcl 25 Mg Tablet) 25 mg PO QID PRN PRN Reason: Vertigo Metoclopramide HCl (Metoclopramide Hcl 10 Mg/2 Ml) 5 mg IVP Q6H PRN PRN Reason: Nausea / Vomiting Last Admin: 11/28/23 08:50 Dose: 5 mg Metoprolol Succinate (Metoprolol Succinate 50 Mg Tab.Er.24h) 100 mg PO DAILY [facility] Discontinued Medications Hydralazine HCl (Hydralazine Hcl 20 Mg/Ml Sdv) 20 mg IVP ONCE STA Stop: 11/28/23 03:29 Last Admin: 11/28/23 03:42 Dose: 20 mg Acetaminophen (Acetaminophen) 1,000 mg in 100 mls @ 400 mls/hr IV ONCE ONE Stop: 11/28/23 07:25 Last Admin: 11/28/23 07:25 Dose: 400 mls/hr Ketorolac Tromethamine (Ketorolac Tromethamine 15 Mg/Ml Vial) 15 mg IVP ONCE ONE Stop: 11/28/23 09:29 Last Admin: 11/28/23 09:50 Dose: 15 mg Meclizine HCl (Meclizine Hcl 25 Mg Tablet) 25 mg PO ONCE STA Stop: 11/28/23 04:06 Last Admin: 11/28/23 04:24 Dose: 25 mg Non-Formulary Medication (Levothyroxine [Synthroid]) 150 mcg PO BEDTIME MARIANNA Ondansetron HCl (Ondansetron Hcl/Pf 4 Mg/2 Ml Sdv) 4 mg IVP ONCE STA Stop: 11/28/23 03:29 Last Admin: 11/28/23 03:41 Dose: 4 mg Ondansetron HCl (Ondansetron Hcl/Pf 4 Mg/2 Ml Sdv) 4 mg IM ONCE STA Stop: 11/28/23 04:30 Last Admin: 11/28/23 07:14 Dose: Not Given Ondansetron HCl (Ondansetron Hcl/Pf 4 Mg/2 Ml Sdv) 4 mg IVP ONCE STA Stop: 11/28/23 07:12 Last Admin: 11/28/23 07:25 Dose: 4 mg Pantoprazole Sodium (Pantoprazole Sodium 40 Mg Vial) 40 mg IVP ONCE ONE Stop: 11/28/23 03:29 Last Admin: 11/28/23 03:41 Dose: 40 mg Opioid Naive vs. Tolerant Does Patient Take Opioids?: No Is Patient Opioid Naive?: Yes What is Opioid Naive?: *Opioid Naive implies the patient is not already taking opioids or not chronically receiving opioids on a daily basis. *PRN dosing is not "usually" associated with tolerance. *Patients are at higher risk of over-sedation and aspiration. Is Patient Opioid Tolerant?: No What is Opioid Tolerant?: *Opioid Tolerance implies less than the expected response to an opioid. *Acquired tolerance is defined by the patient taking 60mg of oral morphine daily (or equianalgesic dose of another opioid) for 1 week or more. *Often associated with chronic pain. *May take more than usual dose to achieve desired pain control. Review of Systems Constitutional: Reports Weakness Head: Reports Normocephalic Eyes: Reports No symptoms Ears: Reports No symptoms Nose: Reports No symptoms Mouth: Reports No symptoms Throat: Reports No symptoms Cardiovascular: Reports No symptoms Respiratory: Reports No symptoms Gastrointestinal: Reports Nausea and Vomiting Genitourinary: Reports No Symptoms Musculoskeletal: Reports No symptoms Endocrine: Reports No symptoms Hematology: Reports No symptoms Immunology: Reports No symptoms Neurological: Reports Dizziness Psychiatric: Reports No symptoms Physical examination Most Recent Vital Signs: Most Recent Vital Signs Temperature 98.1 F 11/28/23 08:49 Temperature Source Oral 11/28/23 08:49 Temperature Source Infrared 11/28/23 02:56 Pulse Rate 97 11/28/23 08:49 Respiratory Rate 16 11/28/23 08:49 Blood Pressure 185/110 H 11/28/23 02:56 Blood Pressure Left Arm 134/84 11/28/23 08:49 Blood Pressure Position Sitting 11/28/23 08:49 O2 Sat by Pulse Oximetry 99 11/28/23 08:49 Oxygen Delivery Method Room Air 11/28/23 10:00 Height 5 ft 8 in 11/28/23 08:49 Weight 240 lb 11/28/23 08:49 Telemetry Type Remote Telemetry 11/28/23 09:10 Telemetry Monitoring Started 11/28/23 09:10 Telemetry Heart Rate 90 11/28/23 09:10 EKG SD Interval 0.20 11/28/23 09:10 EKG QRS Interval 0.05 L 11/28/23 09:10 Telemetry Strip Reading SR 11/28/23 09:10 Appearance: Positive No Apparent Distress and Alert and Oriented x3 Skin: Positive Warm HEENT: Positive Normocephalic, PERRLA and Other (erythematous TM bilateral ears, fluid to left TM) Neck: Positive Supple and Midline Trachea Chest/Lungs: Positive Symmetrical With Equal Breath Sounds, Clear to Auscultation Bilaterally and Good Air Movement all 4 Lung [place] Heart: Positive RRR and Pulses Normal GI/: Positive Soft, Nontender and Bowel Sounds Normal Musculoskeletal: Positive Not Examined Extremities: Positive Intact Peripheral Pulses, Stable Joints Without Laxity and Good ROM in All Joints Neurological: Positive Sensation Intact, Motor intact, Alert, Oriented and Muscle Strength 5/5 in Upper and Lower Extremities Bilaterally Labs This Visit Labs This Visit: Labs This Visit 11/28/23 11/28/23 11/28/23 03:28 05:08 06:35 WBC 7.59 RBC 4.89 Hgb 14.6 Hct 43.5 MCV 89.0 MCH 29.9 MCHC 33.6 RDW Coeff of [place] 12.5 Plt Count 149 Immature Gran % (Auto) 0.4 Neut % (Auto) 78.8 H Lymph % (Auto) 12.4 [place] % (Auto) 6.6 Eos % (Auto) 1.4 Baso % (Auto) 0.4 Neut # (Auto) 6.0 Lymph # (Auto) 0.9 [place] # (Auto) 0.5 Eos # (Auto) 0.1 Baso # (Auto) 0.0 Immature Gran # (Auto) 0.0 Sodium 138.6 Potassium 3.87 Chloride 105.8 Carbon Dioxide 22.9 Anion Gap 13.77 BUN 17.1 H Creatinine 0.53 L Estimated GFR (MDRD) 115.00 BUN/Creatinine Ratio 32.26 Glucose 147.5 H Calcium 9.86 Magnesium 1.81 Total Bilirubin 1.58 H AST 36.0 ALT 26.7 Alkaline Phosphatase 34.4 L Troponin I < 0.012 < 0.012 Total Protein 7.69 Albumin 4.92 Globulin 2.77 Albumin/Globulin Ratio 1.77 Urine Color Yellow Urine Clarity Clear Urine pH 7.5 Ur Specific [place] 1.020 Urine Protein Negative Urine Glucose (UA) Negative Urine Ketones Negative Urine Blood Trace-intact H Urine Nitrite Negative Urine Bilirubin Negative Urine Urobilinogen 0.2 Ur Leukocyte Esterase Negative Urine Microscopic RBC 0-2 Urine Microscopic WBC 0-2 Ur Squamous Epith Cells 0-2 SARS CoV-2 RNA Rapid GAMALIEL 11/28/23 11/28/23 07:10 09:23 WBC RBC Hgb Hct MCV MCH MCHC RDW Coeff of [place] Plt Count Immature Gran % (Auto) Neut % (Auto) Lymph % (Auto) [place] % (Auto) Eos % (Auto) Baso % (Auto) Neut # (Auto) Lymph # (Auto) [place] # (Auto) Eos # (Auto) Baso # (Auto) Immature Gran # (Auto) Sodium Potassium Chloride Carbon Dioxide Anion Gap BUN Creatinine Estimated GFR (MDRD) BUN/Creatinine Ratio Glucose Calcium Magnesium Total Bilirubin AST ALT Alkaline Phosphatase Troponin I < 0.012 Total Protein Albumin Globulin Albumin/Globulin Ratio Urine Color Urine Clarity Urine pH Ur Specific [place] Urine Protein Urine Glucose (UA) Urine Ketones Urine Blood Urine Nitrite Urine Bilirubin Urine Urobilinogen Ur Leukocyte Esterase Urine Microscopic RBC Urine Microscopic WBC Ur Squamous Epith Cells SARS CoV-2 RNA Rapid GAMALIEL Negative Review Statement Review Statement: I have independently reviewed and interpreted the labs/EKGs/imaging that were ordered by the ER provider. I have reviewed all outside records that are available currently in our EMR including imaging/notes/labs from previous visits. Plan Plan: 1. Intractable N/V in setting of vertigo/otitis media - zofran Q6H prn and reglan Q6H prn, meclizine ordered QID prn, advance diet as tolerated 2. Chest pain - Resolved, troponin x 3 negative, telemetry 3. Otitis media - augmentin bid x 7 days 4. Vertigo - meclizine qid prn 5. Hypertension - chronic, was uncontrolled in ER, stable now; continue home medications 6. Hypothyroidism - chronic, continue home medication DVT Prophylaxis: Ambulation Time Spent: Greater than 80 minutes spent with patient, 50% of the time spent with this patient was devoted to counseling and coordination of care. [facility]in minutes spent discussing advance care planning. Disposition: Admit to: Med/Surg Observation DNR Discussed Plan of Care with Dr. Enio Castañeda. Medications Medication Orders: Medications Ordered Category Date Time Status Amlodipine Besylate [Norvasc] Meds 11/28/23 11:00 Ordered 2.5 mg PO DAILY Amoxicillin/Potassium Clav [Augmentin 875-125 mg Tab] Meds 11/28/23 21:00 Active 1 tab PO Q12HR Cyclobenzaprine HCl [Flexeril] Meds 11/28/23 21:00 Ordered 5 mg PO BEDTIME Losartan Potassium [Cozaar] Meds 11/28/23 11:00 Ordered 50 mg PO DAILY Meclizine HCl [Antivert] Meds 11/28/23 09:28 Active 25 mg PO QID PRN Metoclopramide HCl [Reglan] Meds 11/28/23 08:36 Active 5 mg IVP Q6H PRN Metoprolol Succinate [Toprol Xl] Meds 11/28/23 11:00 Ordered 100 mg PO DAILY Sodium Chloride 0.9% [Sodium Chloride] 1,000 ml Meds 11/28/23 03:28 Active IV 100 mls/hr levothyroxine [Synthroid] Meds 11/28/23 21:00 Ordered 150 mcg PO BEDTIME
[2023-11-28] MEDS ORDERED: TOPROL XL PO SCH (11:00)
[2023-11-28] MEDS ORDERED: ZOFRAN 4 MG/2 ML IVP PRN (11:44)
[2023-11-28] MEDS ORDERED: TYLENOL PO PRN (11:44)
[2023-11-28] MEDS: TOPROL XL PO SCH (11:50)
[2023-11-28] MEDS: ANTIVERT PO PRN (11:50)
[2023-11-28] MEDS: NORVASC PO SCH ×2 (11:52→21:08)
[2023-11-28] MEDS: COZAAR PO SCH ×2 (11:52→21:07)
[2023-11-28] MEDS: AUGMENTIN 875-125 MG TAB PO SCH (21:06)
[2023-11-28] MEDS: FLEXERIL PO SCH (21:07)
[2023-11-28] MEDS: SYNTHROID PO SCH ×2 (21:07)
[2023-11-29 05:37] LABS: BASOPHILS % (AUTO) 0.5 % (0.0-3.0); EOSINOPHILS # (AUTO) 0.1 K/ul (0.0-0.7); EOSINOPHILS % (AUTO) 2.1 % (0.0-7.0); HEMATOCRIT 40.8 % (37.0-47.0); HEMOGLOBIN 13.4 g/dl (12.0-16.0); IMMATURE GRANULOCYTE % (AUTO) 0.2 % (0.0-5.0); LYMPHOCYTES # (AUTO) 1.3 K/uL (0.60-3.4); LYMPHOCYTES % (AUTO) 23.6 (10.0-50.0); MEAN CORPUSCULAR HEMOGLOBIN 29.6 pg (27.0-31.0); MEAN CORPUSCULAR HGB CONC 32.8 (31.8-35.4); MEAN CORPUSCULAR VOLUME 90.3 fl (81.0-99.0); MONOCYTES # (AUTO) 0.5 K/uL (0.4-2.0); MONOCYTES % (AUTO) 8.5 (0-10); NEUTROPHILS # (AUTO) 3.7 K/ul (2.0-6.9); NEUTROPHILS % (AUTO) 65.1 % (42.2-75.2); PLATELET COUNT 159 10^3/uL (140-440); RDW COEFFICIENT OF VARIATION 12.9 % (11.6-14.8); RED BLOOD COUNT 4.52 10^6/ul (4.20-5.40); WHITE BLOOD COUNT 5.68 K/ul (4.6-10.2)
[2023-11-29 05:57] LABS: ALANINE AMINOTRANSFERASE 21.6 U/L (0-35); ALBUMIN 4.03 g/dL (3.5-5.0); ALKALINE PHOSPHATASE 34.6 U/L (53-141); ASPARTATE AMINO TRANSFERASE 26.3 U/L (14-36); BILIRUBIN,TOTAL 1.61 mg/dL (0.2-1.3); BLOOD UREA NITROGEN 15.5 mg/dL (7-17); CALCIUM 8.78 mg/dL (8.4-10.2); CHLORIDE 107.3 mmol/L (98-107); CREATININE 0.6 mg/dL (0.60-1.30); GLUCOSE 110.4 mg/dL (74-106); POTASSIUM 3.67 mmol/L (3.5-5.1); SODIUM 138.6 mmol/L (134.5-145); TOTAL PROTEIN 6.34 g/dL (6.3-8.2)
--- NOTE | 2023-11-29 08:56 | DCSUM ---
Admission Date Admission Date: 11/28/23 Discharge Date Discharge Date: 11/29/23 Admission Diagnosis Admission Diagnosis: 1. Intractable N/V in setting of vertigo/otitis media 2. Chest pain 3. Otitis media 4. Vertigo 5. Hypertension 6. Hypothyroidism Discharge Diagnosis Discharge Diagnosis: 1. Intractable N/V in setting of vertigo/otitis media - Resolved 2. Chest pain - Resolved 3. Otitis media - Improving, augmentin bid x 7 days 4. Vertigo - Improving, meclizine qid prn 5. Hypertension - chronic, stable 6. Hypothyroidism - chronic, stable Hospital Provider Hospital Provider: SANDY SHARP [facility]-C, [facility] Primary [facility] Physician Primary Care Physician: OLIVIA MARTINEZ Summary of History and Physical Summary of History and Physical: 68 yo female presented to the ER with dizziness, nausea, vomiting, and chest pain. Patient states that symptoms came on suddenly around 9 pm last night and continued to worsen. Concerned that she was having a stroke. Did not have any neurological deficits. Vision was never blurry and describes it as the room was spinning. Has pmh of vertigo in the past. Denies being sick prior to last night. States chest pain started after multiple episodes of vomiting. Attributes to anxiety. Resolved at this time. Dizziness has improved but is still present. Troponin x2 negative. Required multiple doses of zofran and a dose of meclizine to help with vomiting. Still nauseated at this time. Admitted to med/surg observation. Hospital Course Subjective: During stay, patient received relief from nausea and vomiting with reglan. Reported zofran was ineffective for her. Treated vertigo with meclizine. Patient was found to have serous otitis media to the L ear and otitis media to the R ear which likely contributed to the flare of vertigo. She was started on augmentin bid x 7 days. Patient is feeling much better at this time. Chest pain resolved after blood pressure decreased. Troponins negative x 3. Patient admitted to anxiety due to vomiting. No changes to home medications. Appearance: Pleasant, No Apparent Distress and Alert HEENT: MMM, Supple and No JVD CVS: No Murmur, No Rubs and No Gallop Abdomen: Soft, Non-Tender and No Distention Respiratory: No Dyspnea Extremities: No Edema Vital Signs: Most Recent Vital Signs Temperature 97.8 F 11/29/23 05:35 Temperature Source Temporal Artery Scan 11/29/23 05:35 Temperature Source Infrared 11/28/23 02:56 Pulse Rate 74 11/29/23 05:35 Respiratory Rate 17 11/29/23 05:35 Blood Pressure 159/84 H 11/29/23 05:35 Blood Pressure Mean 109 11/29/23 05:35 Blood Pressure Left Arm 134/84 11/28/23 08:49 Blood Pressure Location Left Arm 11/28/23 21:06 Blood Pressure Position Supine 11/28/23 21:06 O2 Sat by Pulse Oximetry 91 L 11/29/23 05:35 Oxygen Delivery Method Room Air 11/29/23 08:00 Height 5 ft 8 in 11/28/23 08:49 Weight 240 lb 11/28/23 08:49 Telemetry Type Remote Telemetry 11/29/23 07:00 Telemetry Monitoring Continues 11/29/23 07:00 Telemetry Heart Rate 70 11/29/23 07:00 Telemetry SPO2 93 11/29/23 01:00 EKG OK Interval 0.20 11/29/23 07:00 EKG QRS Interval 0.5 H 11/29/23 07:00 Telemetry Strip Reading NSR 11/29/23 07:00 Lab Results Last 24 Hours: 11/29/23 11/28/23 05:27 09:23 WBC 5.68 RBC 4.52 Hgb 13.4 Hct 40.8 MCV 90.3 MCH 29.6 MCHC 32.8 RDW Coeff of Camacho 12.9 Plt Count 159 Immature Gran % (Auto) 0.2 Neut % (Auto) 65.1 Lymph % (Auto) 23.6 Ida % (Auto) 8.5 Eos % (Auto) 2.1 Baso % (Auto) 0.5 Neut # (Auto) 3.7 Lymph # (Auto) 1.3 Ida # (Auto) 0.5 Eos # (Auto) 0.1 Baso # (Auto) 0.0 Immature Gran # (Auto) 0.0 Sodium 138.6 Potassium 3.67 Chloride 107.3 H Carbon Dioxide 25.0 Anion Gap 9.97 BUN 15.5 Creatinine 0.60 Estimated GFR (MDRD) 99.00 BUN/Creatinine Ratio 25.83 Glucose 110.4 H Calcium 8.78 Total Bilirubin 1.61 H AST 26.3 ALT 21.6 Alkaline Phosphatase 34.6 L Troponin I < 0.012 Total Protein 6.34 Albumin 4.03 Globulin 2.31 Albumin/Globulin Ratio 1.74 Discharge Instructions Discharge Planning: Discharge Planning > 40 minutes If patient is discharged with left ventricular systolic dysfunction: NA Discharged with a beta otilia? [] If no, why not? [] Discharged with an cydney/arb? [] If no, why not? [] Diagnosis: Vertigo, Otitis Media Diet: Regular Activity: as tolerated Follow-up with PCP next week. Medications: Meclizine may take up to 4 times a day as needed Reglan every 6 hours as needed for nausea and vomiting. Augmentin take twice a day for 6 days - you were given your morning dose for today, taking next dose this evening. Be sure to take with food. Discharge Medications: Medications at Discharge (Home Meds & RX) cyclobenzaprine 10 mg tablet 5 mg PO BEDTIME 04/26/13 levothyroxine 150 mcg tablet (Synthroid) 150 mcg PO BEDTIME 04/26/13 metoprolol succinate 25 mg tablet,extended release 24 hr 100 mg PO DAILY 04/26/13 piroxicam 20 mg capsule (Feldene) 20 mg PO 3 TIMES PER WEEK 04/26/13 losartan 50 mg tablet 50 mg PO DAILY 12/16/16 cholecalciferol (vit D3) 1,000 unit-vitamin K2 (MK4) 100 mcg tablet (K2 Plus D3) 1 ea PO BEDTIME 10/20/18 coenzyme Q10 100 mg capsule (Co Q-10) 50 mg PO BEDTIME 10/20/18 magnesium oxide 420 mg tablet 400 mg PO DAILY 08/11/21 dodie root extract 50 mg tablet 1,100 mg PO DAILY 05/01/22 amlodipine 2.5 mg tablet 2.5 mg PO DAILY 09/04/23 cyclobenzaprine 5 mg tablet 5 mg PO BEDTIME 09/04/23 vitamin C 500 mg-quercetin 250 mg-bioflavonoids, citrus 33 mg capsule (Quercetin Complex) 1 cap PO DAILY 11/28/23 Discharge Plan Discharge Discharge Orders: Discharge Patient (ONCE); Ordered 11/29/23 Ordered By: MADDY SHOEMAKER Activity Restrictions/Additional Instructions: Diagnosis: Vertigo, Otitis Media Diet: Regular Activity: as tolerated Follow-up with PCP next week. Medications: Meclizine may take up to 4 times a day as needed Reglan every 6 hours as needed for nausea and vomiting. Augmentin take twice a day for 6 days - you were given your morning dose for t jose de jesus, taking next dose this evening. Be sure to take with food. Instructions: Vertigo (GEN), Ear Infection (GEN), Acute Nausea and Vomiting (GEN) Patient Disposition: HOME SELF-CARE Prescriptions: New amoxicillin-pot clavulanate 875-125 mg Tablet 1 tab PO Q12HR 6 Days Qty: 11 0RF Rx Instructions: start tonight, morning dose for today given meclizine 25 mg Tablet 25 mg PO QID PRN (Reason: dizziness) Qty: 60 0RF metoclopramide HCl [Reglan] 10 mg tablet 10 mg PO Q6H PRN (Reason: nausea and vomiting) Qty: 30 0RF Continued levothyroxine [Synthroid] 150 MCG tablet 150 mcg PO BEDTIME metoprolol succinate 25 MG tablet extended release 24 hr 100 mg PO DAILY piroxicam [Feldene] 20 MG capsule 20 mg PO 3 TIMES PER WEEK magnesium oxide 420 mg Tablet 400 mg PO DAILY dodie root extract 50 mg Tablet 1,100 mg PO DAILY losartan 50 MG tablet 50 mg PO DAILY coenzyme Q10 [Co Q-10] 100 MG capsule 50 mg PO BEDTIME K2 Plus D3 1 EACH tablet 1 ea PO BEDTIME amlodipine 2.5 mg tablet 2.5 mg PO DAILY cyclobenzaprine 5 mg tablet 5 mg PO BEDTIME Quercetin Complex 500-250-33 mg capsule 1 cap PO DAILY Discontinued cyclobenzaprine 10 MG tablet 5 mg PO BEDTIME Did you review [place] [employer] for ALL controlled substances?: No Discussed opioids are addictive and Narcan is available by prescription or from pharmacy.: No Condition: Stable Referrals: OLIVIA MARTINEZ MD [Primary Care Provider] - 12/05/23 2:15 pm
[2023-11-29 10:35] VITALS: BP 119/84; PULSE 73; RESP 16; TEMP 98.2
== END 2023-11-29 13:15 | disposition home or self-care (01) ==
LOC: ED 02:52 → MEDSURG B 02:52
PROVIDERS: ADMIT Hospitalist; ATTEND Physician Assistant
DX: I10 Essential (primary) hypertension; Z51.81 Encounter for therapeutic drug level monitoring; R42 Dizziness and giddiness; E03.9 Hypothyroidism, unspecified; R07.89 Other chest pain; H66.93 Otitis media, unspecified, bilateral; R11.2 Nausea with vomiting, unspecified; H83.09 Labyrinthitis, unspecified ear; Z79.899 Other long term (current) drug therapy; R91.8 Other nonspecific abnormal finding of lung field; Z20.822 Contact with and (suspected) exposure to COVID-19

== ENCOUNTER 2025-03-28 12:27 | Inpatient (IN) ==
--- NOTE | 2025-03-28 12:50 | ED.PDOC ---
General HPI ED Provider: Dr. LORENZO GOODWIN DO Chief Complaint: Shortness of Air Stated Complaint: fever. SOB. Patient seen here yesterday diagnosed with cough. Sent home with albuterol inhaler. Patient states been using this without improvement of her symptoms. Patient reports a fever of 102 this morning as well as difficulty breathing. Oxygen saturations were low prompting her to come to the emergency department. Patient endorses no chest pain but states she has shortness of breath as well as productive cough. No nausea vomiting. No known sick contacts. Did not receive flu or COVID shots. States that she has a leaky aortic valve which has not been replaced and feels that she has some crackles in her upper lungs. No edema. Time Seen by Provider: 03/28/25 12:44 Information Source: Patient Primary Care Provider: TIM WILL Nursing and Triage Documentation Reviewed and Agree: Yes Opioid Naive vs. Tolerant What is Opioid Naive?: *Opioid Naive implies the patient is not already taking opioids or not chronically receiving opioids on a daily basis. *PRN dosing is not "usually" associated with tolerance. *Patients are at higher risk of over-sedation and aspiration. What is Opioid Tolerant?: *Opioid Tolerance implies less than the expected response to an opioid. *Acquired tolerance is defined by the patient taking 60mg of oral morphine daily (or equianalgesic dose of another opioid) for 1 week or more. *Often associated with chronic pain. *May take more than usual dose to achieve desired pain control. 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) HTN (hypertension) I10 - Essential (primary) hypertension (ICD-10) Left ventricular dysfunction I51.9 - Heart disease, unspecified (ICD-10) Family History FATHER Diabetes Mother Heart valve disease Social History Smoking and tobacco status: Never smoker Surgical History H/O: hysterectomy Z90.710 - Acquired absence of both cervix and uterus (ICD-10) Hx of appendectomy Z90.49 - Acquired absence of other specified parts of digestive tract (ICD- 10) Hx of cholecystectomy Z90.49 - Acquired absence of other specified parts of digestive tract (ICD- 10) Female Reproductive History Menstrual Hx Hysterectomy: Yes Hx Tubal Ligation: No Physical Exam Physical Exam Appearance: Reports Ill-appearing Ill-appearing: Mild Pain Distress: Mild Eyes: Reports ROLY and Conjunctiva clear ENT: Reports Ears normal and Oropharynx normal Neck: Supple Respiratory: Reports Airway patent, Breath sounds diminished and Crackles Cardiovascular: Reports RRR, Pulses normal and Murmur GI/: Reports Soft and Nontender Musculoskeletal: Reports Normal strength, ROM intact and No edema Skin: Reports Warm; Denies Cyanotic Neurological: Reports Sensation intact, Motor intact, Alert and Oriented Psychiatric: Reports Affect appropriate Interpretation EKG Interpretation EKG Interpretation By: ED Physician Time of EKG #1: 13:28 Rate: Normal Rhythm: Sinus Ectopy: PVCs Clyde: NL ST Segment: Normal Interpretation: Sinus rhythm PAC Q-wave lead III only Radiology Interpretation Radiology Interpretation By: ED Physician Radiology Results: Positive Exam Interpreted: CXR Xray Comments: Developing pneumonia Physician Progress Note Physician Progress Note: EXAMINATION: CHEST, 2 VIEWS PA LAT. DATE: 03/28/2025. HISTORY: Cough. COMPARISON: 03/27/2025. FINDINGS: Lines/Devices: None. Cardiomediastinal silhouette: Normal cardiac size. Aortic arch atherosclerosis. Lungs and pleural space: No edema. Hepatic appearing changes in the lungs with paucity of vascular markings superiorly suggesting chronic obstructive pulmonary disease/emphysema. Minimal atelectatic changes at the lung bases greater on the left. No consolidation. No pleural effusion. Osseous structures: No significant abnormality. IMPRESSION: No acute cardiopulmonary abnormality. Chronic obstructive pulmonary disease/emphysema. Aortic atherosclerotic vascular disease. Basilar atelectatic changes greater on the left. Electronically Signed By: En Howard M.D. Signing Date: 2025-03-28 13:40 Patient notably hypoxic on examination. I did give her a DuoNeb. She has thrush therefore given nystatin. Still treated with ceftriaxone and azithromycin for pneumonia. Spoke with hospitalist agreement for observation with telemetry. Supplemental 2 L oxygen now satting 95%. Differential diagnosis, ACS, CHF, pneumonia, COVID, flu, viral illness Course Course 03/28/25 13:04 03/28/25 13:04 Orders, Labs, Meds: Lab Review 03/28/25 03/28/25 03/28/25 12:52 12:53 13:04 WBC 7.02 RBC 4.64 Hgb 14.0 Hct 43.7 MCV 94.2 MCH 30.2 MCHC 32.0 RDW Coeff of Camacho 12.8 Plt Count 224 Immature Gran % (Auto) 0.1 Neut % (Auto) 70.2 Lymph % (Auto) 10.4 [place] % (Auto) 17.5 H Eos % (Auto) 1.1 Baso % (Auto) 0.7 Neut # (Auto) 4.9 Lymph # (Auto) 0.7 [place] # (Auto) 1.2 Eos # (Auto) 0.1 Baso # (Auto) 0.1 Immature Gran # (Auto) 0.0 Sodium 134.7 Potassium 3.65 Chloride 99.1 Carbon Dioxide 27.8 Anion Gap 11.45 BUN 11.1 Creatinine 0.57 L Estimated GFR (MDRD) 105.00 BUN/Creatinine Ratio 19.47 Glucose 146.8 H Lactic Acid 1.17 Calcium 9.43 Total Bilirubin 1.79 H AST 47.6 H ALT 28.2 Alkaline Phosphatase 48.7 L Troponin I < 0.012 NT-Pro-B Natriuret Pep 139 Total Protein 7.63 Albumin 4.38 Globulin 3.25 Albumin/Globulin Ratio 1.34 Influ A Molecular Assay Negative by naat Influ B Molecular Assay Negative by naat RSV Antigen Negative by naat SARS CoV-2 RNA Rapid GAMALIEL Negative Orders Category Date Time Status ADMIT OBSERVATION [PLACE PATIENT OBSERVATION] .TO ADMISSION 03/28/25 13:59 Active MEDSURG (MONITORED BED) EKG-(ED & IP/OBS ONLY) Stat CARDIO 03/28/25 12:50 Completed NEBULIZER TREATMENT Stat CARDIO 03/28/25 13:06 Completed TELEMETRY MONITORING TELE CARE 03/28/25 13:59 Active ED APPLY O2 .ONCE EMERGENCY 03/28/25 12:49 Active ED FIRST MATE APPLIED .ONCE EMERGENCY 03/28/25 12:49 Active BLOOD CULTURE (ED ONLY) Stat LAB 03/28/25 13:04 Received CBC W/ AUTO DIFF Stat LAB 03/28/25 13:04 Completed COMPREHENSIVE METABOLIC PANEL Stat LAB 03/28/25 13:04 Completed FLU A/B MOLECULAR Stat LAB 03/28/25 12:52 Completed LACTIC ACID Stat LAB 03/28/25 13:04 Completed NT-PROBNP(ED) Stat LAB 03/28/25 13:04 Completed RSV Stat LAB 03/28/25 12:53 Completed SARS COV-2 RNA RAPID GAMALIEL Stat LAB 03/28/25 12:52 Completed TROPONIN I Stat LAB 03/28/25 13:04 Completed Azithromycin Inj [Zithromax] 500 mg Meds 03/28/25 13:49 Active 0.9 % Sodium Chloride [Sodium Chloride] 250 ml IV ONCE Ceftriaxone 1 gm Vial [Rocephin 1 gm Vial] Meds 03/28/25 13:49 Discontinued 1 gm IVP ONCE ONE Ipratropium/Albuterol Neb [Duoneb] Meds 03/28/25 13:06 Discontinued 3 ml NEB ONCE STA Nystatin [Nystatin Oral Susp] Meds 03/28/25 13:57 Discontinued 5 ml PO ONCE ONE CHEST, 2 VIEWS PA & LAT Stat RADS 03/28/25 12:49 Completed Medications Generic Name Dose Route Start Last Admin Trade Name Freq PRN Reason Stop Dose Admin Azithromycin 500 mg/ Sodium 250 mls @ 250 mls/hr 03/28/25 13:49 Chloride IV 03/28/25 14:48 ONCE ONE Discontinued Medications Generic Name Dose Route Start Last Admin Trade Name Freq PRN Reason Stop Dose Admin Albuterol/Ipratropium 3 ml 03/28/25 13:06 03/28/25 13:21 Ipratropium/Albuterol Vial.Neb NEB 03/28/25 13:07 3 ml ONCE STA Administration Ceftriaxone Sodium 1 gm 03/28/25 13:49 Ceftriaxone 1 Gm Vial IVP 03/28/25 13:50 ONCE ONE Nystatin 5 ml 03/28/25 13:57 Nystatin Susp 500,000 Units/5 Ml Cup PO 03/28/25 13:58 ONCE ONE Vital Signs: Temp Pulse Resp BP Pulse Ox O2 Flow Rate 03/28/25 13:35 2 03/28/25 12:33 97.8 F 104 H 20 161/91 H 89 L TANYA Risk Score TANYA Risk Score: Risk Score Odds of by 30D 0 0.1 (0.1-0.2) 1 0.3 (0.2-0.3) 2 0.4 (0.3-0.5) 3 0.7 (0.6-0.9) 4 1.2 (1.0-1.5) 5 2.2 (1.9-2.6) 6 3.0 (2.5-3.6) 7 4.8 (3.8-6.1) Discharge Plan Discharge Patient Disposition: PLACED OBSERVATION Discharge Problem: Hypoxia, Pneumonia, Candidiasis of mouth Did you review [place] [employer] for ALL controlled substances?: Not Applicable ED Provider: LORENZO GOODWIN Condition: Fair
[2025-03-28 13:11] LABS: IMMATURE GRANULOCYTE # (AUTO) 0.0 (0.0-1.0); IMMATURE GRANULOCYTE % (AUTO) 0.1 % (0.0-5.0); RDW COEFFICIENT OF VARIATION 12.8 % (11.6-14.8)
[2025-03-28] MEDS: DUONEB NEB STA (13:21)
[2025-03-28 13:23] LABS: CREATININE 0.57 mg/dL (0.60-1.30)
[2025-03-28 13:24] LABS: RSV MOLECULAR NEGATIVE BY NAAT (NEGATIVE)
[2025-03-28 13:25] LABS: MOLECULAR FLU A NEGATIVE BY NAAT (NEGATIVE); MOLECULAR FLU B NEGATIVE BY NAAT (NEGATIVE); SARS COV-2 RNA RAPID NAAT NEGATIVE (NEGATIVE)
--- NOTE | 2025-03-28 13:45 | DI ---
EXAMINATION: CHEST, 2 VIEWS PA LAT. DATE: 03/28/2025. HISTORY: Cough. COMPARISON: 03/27/2025. FINDINGS: Lines/Devices: None. Cardiomediastinal silhouette: Normal cardiac size. Aortic arch atherosclerosis. Lungs and pleural space: No edema. Hepatic appearing changes in the lungs with paucity of vascular markings superiorly suggesting chronic obstructive pulmonary disease/emphysema. Minimal atelectatic changes at the lung bases greater on the left. No consolidation. No pleural effusion. Osseous structures: No significant abnormality. IMPRESSION: No acute cardiopulmonary abnormality. Chronic obstructive pulmonary disease/emphysema. Aortic atherosclerotic vascular disease. Basilar atelectatic changes greater on the left.
[2025-03-28] MEDS: ZITHROMAX 500 MG in SODIUM CHLORIDE 250 ML IV ONE (14:26)
[2025-03-28] MEDS: ROCEPHIN 1 GM VIAL IVP ONE (14:26)
[2025-03-28] MEDS: NYSTATIN ORAL SUSP PO ONE (14:27)
[2025-03-28] MEDS ORDERED: ANTIVERT PO PRN (16:12)
[2025-03-28] MEDS ORDERED: ROBITUSSIN DM SYRUP PO PRN (16:13)
[2025-03-28] MEDS ORDERED: TESSALON PERLES PO PRN (16:13)
[2025-03-28 16:15] VITALS: BMI 38.2
[2025-03-28] MEDS: NYSTATIN ORAL SUSP PO SCH (17:17)
[2025-03-28 18:42] LABS: BORDETELLA PARAPERTUSSIS (PCR) NOT DETECTED (NOT DETECT); BORDETELLA PERTUSSIS (PCR) NOT DETECTED (NOT DETECT); CHLAMYDIA PNEUMONIAE (PCR) NOT DETECTED (NOT DETECT); CORONAVIRUS 229E (PCR) NOT DETECTED (NOT DETECT); CORONAVIRUS HKU1 (PCR) NOT DETECTED (NOT DETECT); CORONAVIRUS NL63 (PCR) NOT DETECTED (NOT DETECT); CORONAVIRUS OC43 (PCR) NOT DETECTED (NOT DETECT); HUMAN METAPNEUMOVIRUS (PCR) NOT DETECTED (NOT DETECT); HUMAN RHINOVIRUS/ENTEROV (PCR) NOT DETECTED (NOT DETECT); INFLUENZA A H1 (PCR) NOT DETECTED (NOT DETECT); INFLUENZA A H1-2009 (PCR) NOT DETECTED (NOT DETECT); INFLUENZA A H3 (PCR) NOT DETECTED (NOT DETECT); INFLUENZA B (PCR) NOT DETECTED (NOT DETECT); MYCOPLASMA PNEUMONIAE (PCR) NOT DETECTED (NOT DETECT); PARAINFLUENZA VIRUS 1 (PCR) NOT DETECTED (NOT DETECT); PARAINFLUENZA VIRUS 2 (PCR) NOT DETECTED (NOT DETECT); PARAINFLUENZA VIRUS 3 (PCR) NOT DETECTED (NOT DETECT); PARAINFLUENZA VIRUS 4 (PCR) NOT DETECTED (NOT DETECT); RESPIRATORY SYNCYTIAL V (PCR) NOT DETECTED (NOT DETECT); SARS_COV_2 (PCR) NOT DETECTED (NOT DETECT)
[2025-03-28] MEDS: ZOFRAN SDV IVP PRN (19:27)
[2025-03-28 19:32] LABS: ADENOVIRUS (PCR) NOT DETECTED (NOT DETECT)
[2025-03-28] MEDS ORDERED: SYNTHROID PO SCH (21:00)
[2025-03-28] MEDS: NORVASC PO SCH (21:06)
[2025-03-28] MEDS: COZAAR PO SCH (21:06)
[2025-03-28] MEDS: SYNTHROID PO SCH (21:07)
[2025-03-28] MEDS: FLEXERIL PO SCH (21:07)
[2025-03-28] MEDS: TOPROL XL PO SCH (21:07)
[2025-03-28] MEDS: TYLENOL PO PRN (21:12)
[2025-03-29 05:50] LABS: IMMATURE GRANULOCYTE # (AUTO) 0.0 (0.0-1.0); IMMATURE GRANULOCYTE % (AUTO) 0.5 % (0.0-5.0); RDW COEFFICIENT OF VARIATION 12.7 % (11.6-14.8)
[2025-03-29 06:05] LABS: CREATININE 0.56 mg/dL (0.60-1.30)
[2025-03-29] MEDS ORDERED: NORVASC PO SCH (09:00)
[2025-03-29] MEDS ORDERED: TOPROL XL PO SCH (09:00)
[2025-03-29] MEDS ORDERED: COZAAR PO SCH (09:00)
[2025-03-29] MEDS: K-DUR PO ONE (09:06)
--- NOTE | 2025-03-29 10:13 | CT ---
EXAM: CHEST CT WITHOUT CONTRAST HISTORY: Hypoxia, shortness of breath TECHNIQUE: CT acquisition of the chest from the thoracic inlet to the upper abdomen without IV contrast administration. CT Dose Reduction Techniques Performed: Yes COMPARISON: 10/20/2018 CT FINDINGS: Lines, Tubes, Devices: None. Lung Parenchyma and Airways: Bilateral peribronchial wall thickening is now seen. There is opacification of some left lower lobe bronchioles. Severe emphysematous changes are again seen. There is mild right lower lobe atelectasis. Mild multifocal right upper lobe, mild right lower lobe and minimal left lower lobe tree in bud type nodularity is identified. Pleural Space: No pleural effusion. No pleural thickening. There is asymmetric enlargement of the left thyroid lobe. Thoracic Inlet, Mediastinum, and Antonina: Thyroid gland is normal in appearance. No lymphadenopathy. Heart, Vessels, and Pericardium: Heart size is normal. There is no pericardial effusion or pericardial thickening. Bones and Soft Tissues: Mild degenerative changes of the spine. Chest wall soft tissues are within normal limits. Upper Abdomen: Small hiatal hernia. Status post cholecystectomy. Hepatic cysts and other hypodensities too small to accurately characterize. IMPRESSION: Bronchitis with mild left lower lobe bronchiolar mucous plugging. Mild bilateral bronchiolitis. Mild right lower lobe atelectasis. Severe emphysema. All CT scans are performed using dose optimization techniques as appropriate to the performed exam and include at least one of the following: Automated exposure control, adjustment of the mA and/or kV according to size, and the use of iterative reconstruction technique.
[2025-03-29] MEDS: ZITHROMAX 500 MG in SODIUM CHLORIDE 250 ML IV SCH (11:21)
[2025-03-29] MEDS: PREDNISONE PO SCH (11:31)
--- NOTE | 2025-03-29 12:59 | PCM ---
Date of Service Date Seen by Provider: 03/29/25 Time Seen by Provider: 08:45 Admit Day/Time Admission Date: 03/28/25 Admission Time: 13:59 Reason for Admission Chief Complaint: PNEUMONIA Hospital Provider Hospital Provider: SANDY SHARP PA-C, [facility] Primary Care Physician Primary Care Physician: TIM WILL History of Present Illness History of Present Illness: Patient is a 69 year old female with pmhx of hypothyroidism, hypertension who presents to ER with worsening SOB. She started feeling unwell almost one week ago. Started with headache, loose stool x1, productive cough, and drainage. She's continued to feel more SOB. She was evaluated in the ER on 03/27. Workup was negative including a negative chest x-ray. She was sent home with conservative measures. She returned on 03/28. Chest x-ray still negative and labs overall unremarkable, however she was noted to be hypoxic in the 80s and placed on 2 L. Patient was given azithromycin and Rocephin. Admitted to [facility]. Today she is still having a productive cough and overall not feeling well. However she states she does feel better since receiving antibiotics yesterday. Viral panel was negative. She does have an anaphylactic reaction to contrast in the past. CT chest without is showing bronchitis/bronchiolitis and severe emphysema. She has not been diagnosed with COPD in the past she does have a history of smoking but quit many years ago. She states she has multiple family members with COPD. Case Discussed With Case Discussed With: Patient's case was discussed with the ER Physicians, Dr. Sanz. 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) HTN (hypertension) I10 - Essential (primary) hypertension (ICD-10) Left ventricular dysfunction I51.9 - Heart disease, unspecified (ICD-10) Surgical History H/O: hysterectomy Z90.710 - Acquired absence of both cervix and uterus (ICD-10) Hx of appendectomy Z90.49 - Acquired absence of other specified parts of digestive tract (ICD- 10) Hx of cholecystectomy Z90.49 - Acquired absence of other specified parts of digestive tract (ICD- 10) Family History FATHER Diabetes Mother Heart valve disease Social History Smoking and tobacco status: Never smoker Allergies Allergies Allergy/AdvReac Type Severity Reaction Status Date / Time Iodinated Contrast Media Allergy Severe Anaphylaxis Verified 03/29/25 07:10 (Iodinated Contrast Media - IV Dye) sulfamethoxazole (From Allergy Severe LIPS Verified 03/29/25 07:10 Bactrim) Swelling trimethoprim (From Bactrim) Allergy Severe LIPS Verified 03/29/25 07:10 Swelling codeine AdvReac Nausea Verified 03/28/25 12:42 hydromorphone (From Dilaudid) AdvReac HALLUCINATIONS/HEART Verified 03/28/25 12:42 RACES phenazopyridine HCl (From AdvReac Nausea Verified 03/28/25 12:42 Pyridium) Current Medications Home Medications Acetaminophen (Acetaminophen 325 Mg Tablet) 650 mg PO Q4H PRN PRN Reason: Mild Pain Last Admin: 03/28/25 21:12 Dose: 650 mg Albuterol/Ipratropium (Ipratropium/Albuterol Vial.Neb) 3 ml NEB RTQ6H PRN PRN Reason: Wheezing Amlodipine Besylate (Amlodipine Besylate 5 Mg Tablet) 2.5 mg PO BEDTIME MARIANNA Last Admin: 03/28/25 21:06 Dose: 2.5 mg Benzonatate (Benzonatate 100 Mg Capsule) 100 mg PO TID PRN PRN Reason: Cough Cyclobenzaprine HCl (Cyclobenzaprine Hcl 10 Mg Tablet) 5 mg PO BEDTIME MARIANNA Last Admin: 03/28/25 21:07 Dose: 5 mg Guaifenesin/Dextromethorphan (Guaifenesin/Dextromethorphan 200/20 Mg/10 Ml Cup) 10 ml PO Q4H PRN PRN Reason: Cough Azithromycin 500 mg/ Sodium (Chloride) 250 mls @ 250 mls/hr IV DAILY MARIANNA Stop: 03/30/25 11:00 Last Admin: 03/29/25 11:21 Dose: 250 mls/hr Levothyroxine Sodium (Levothyroxine Sodium 75 Mcg Tablet) 150 mcg PO BEDTIME [facility] Losartan Potassium (Losartan Potassium 25 Mg Tablet) 50 mg PO BEDTIME [facility] Last Admin: 03/28/25 21:06 Dose: 50 mg Meclizine HCl (Meclizine Hcl 25 Mg Tablet) 25 mg PO QID PRN PRN Reason: Dizziness Metoprolol Succinate (Metoprolol Succinate 50 Mg Tab.Er.24h) 100 mg PO BEDTIME [facility] Last Admin: 03/28/25 21:07 Dose: 100 mg Ondansetron HCl (Ondansetron Hcl/Pf 4 Mg/2 Ml Sdv) 4 mg IVP Q6H PRN PRN Reason: Nausea / Vomiting Last Admin: 03/29/25 06:23 Dose: 4 mg Prednisone (Prednisone 20 Mg Tablet) 20 mg PO BID [facility] Last Admin: 03/29/25 11:31 Dose: 20 mg Sodium Chloride (0.9% Sodium Chloride 10 Ml Disp.Syrin) 1 syr IVF Q8HR [facility] Last Admin: 03/29/25 12:27 Dose: 1 syr Sodium Chloride (0.9% Sodium Chloride 10 Ml Disp.Syrin) 1 syr IVF PRN PRN PRN Reason: Maintain IV Patency levothyroxine 150 mcg tablet (Synthroid) 150 mcg PO BEDTIME 04/26/13 [History Confirmed 03/28/25] piroxicam 20 mg capsule (Feldene) 20 mg PO 3 TIMES PER WEEK 04/26/13 [History Confirmed 03/28/25] losartan 50 mg tablet 50 mg PO QHS 12/16/16 [History Confirmed 03/28/25] coenzyme Q10 100 mg capsule (Co Q-10) 50 mg PO BEDTIME 10/20/18 [History Confirmed 03/28/25] magnesium oxide 420 mg tablet 400 mg PO QHS 08/11/21 [History Confirmed 03/28/25] dodie root extract 50 mg tablet 1,100 mg PO DAILY 05/01/22 [History Confirmed 03/28/25] amlodipine 2.5 mg tablet 2.5 mg PO QHS 09/04/23 [History Confirmed 03/28/25] cyclobenzaprine 5 mg tablet 5 mg PO BEDTIME 09/04/23 [History Confirmed 03/28/25] vitamin C 500 mg-quercetin 250 mg-bioflavonoids, citrus 33 mg capsule (Quercetin Complex) 1 cap PO DAILY 11/28/23 [History Confirmed 03/28/25] meclizine 25 mg tablet 25 mg PO QID PRN dizziness #60 tabs 11/29/23 [Rx Confirmed 03/28/25] metoclopramide HCl 10 mg tablet (Reglan) 10 mg PO Q6H PRN nausea and vomiting #30 tabs 11/29/23 [Rx Confirmed 03/28/25] albuterol sulfate 90 mcg/actuation breath activated powder inhaler 1 inh inhalation Q4-6H PRN shortness of breath or wheezing #1 ea 03/27/25 [Rx Confirmed 03/28/25] dextromethorphan HBr 15 mg capsule 15 mg PO Q6-8H PRN cough #30 caps 03/27/25 [Rx Confirmed 03/28/25] metoprolol succinate 100 mg tablet,extended release 24 hr 100 mg PO QHS 03/27/25 [History Confirmed 03/28/25] ondansetron 4 mg disintegrating tablet 4 mg PO Q8H PRN nausea and vomiting #30 tabs 03/27/25 [Rx Confirmed 03/28/25] oxymetazoline 0.05 % nasal spray 2 spray intranasal Q12H PRN nasal congestion 3 days #22 mL 03/27/25 [Rx Confirmed 03/28/25] K2 Plus D3 spray inhalation QHS 03/28/25 [History] vitamin C 500 mg-quercetin 225 mg-bioflavonoids, citrus 33 mg capsule (Quercetin Complex) cap PO .DAILY AM 03/28/25 [History] Opioid Naive vs. Tolerant Does Patient Take Opioids?: No Is Patient Opioid Naive?: Yes What is Opioid Naive?: *Opioid Naive implies the patient is not already taking opioids or not chronically receiving opioids on a daily basis. *PRN dosing is not "usually" associated with tolerance. *Patients are at higher risk of over-sedation and aspiration. Is Patient Opioid Tolerant?: No What is Opioid Tolerant?: *Opioid Tolerance implies less than the expected response to an opioid. *Acquired tolerance is defined by the patient taking 60mg of oral morphine daily (or equianalgesic dose of another opioid) for 1 week or more. *Often associated with chronic pain. *May take more than usual dose to achieve desired pain control. Review of Systems Constitutional: Reports Fever and Fatigue Head: Reports Normocephalic and Atraumatic Throat: Reports Sore Throat Cardiovascular: Denies Chest pain, Edema or Palpitations Respiratory: Reports Cough, Shortness of air and Wheeze Gastrointestinal: Reports Nausea and Diarrhea (x1, resolved ); Denies Vomiting Genitourinary: Denies Dysuria or Frequency Neurological: Reports Headache (resolved ); Denies Dizziness or Syncope Physical examination Most Recent Vital Signs: Most Recent Vital Signs Temperature 99.2 F 03/29/25 10:00 Temperature Source Temporal Artery Scan 03/29/25 10:00 Temperature Source Temporal Artery Scan 03/28/25 12:33 Pulse Rate 89 03/29/25 10:00 Respiratory Rate 14 03/29/25 10:00 Blood Pressure 133/77 03/29/25 10:00 Blood Pressure Mean 95 03/29/25 10:00 Blood Pressure Right Arm 135/75 03/28/25 15:16 Blood Pressure Location Right Arm 03/29/25 10:00 Blood Pressure Position Supine 03/29/25 05:48 O2 Sat by Pulse Oximetry 96 03/29/25 10:00 Oxygen Delivery Method Nasal Cannula 03/29/25 10:00 Oxygen Flow Rate 2 03/29/25 10:00 Height 5 ft 8 in 03/28/25 15:16 Weight 114 kg 03/28/25 16:33 Telemetry Type Remote Telemetry 03/29/25 07:00 Telemetry Monitoring Continues 03/29/25 07:00 Telemetry Heart Rate 102 H 03/29/25 07:00 Telemetry SPO2 87 L 03/29/25 07:00 EKG NC Interval 0.18 03/29/25 07:00 EKG QRS Interval 0.08 03/29/25 07:00 Telemetry Strip Reading S. Tach w/PVC's 03/29/25 07:00 Appearance: Positive No Apparent Distress, Alert and Oriented x3 and Ill- Appearing Skin: Positive [place], Warm and Good Turgor HEENT: Positive Normocephalic and Atraumatic Neck: Positive Supple and Midline Trachea Chest/Lungs: Positive Symmetrical With Equal Breath Sounds and Wheezes (mild, worse on right, heard best anteriorly ) Heart: Positive RRR GI/: Positive Soft, Nontender, Bowel Sounds Normal and No Distention Extremities: Negative Edema Neurological: Positive Cranial Nerves Intact, Alert and Muscle Strength 5/5 in Upper and Lower Extremities Bilaterally Psychiatric: Positive Oriented x4, Appropriate Mood and Appropriate Affect Labs This Visit Labs This Visit: Labs This Visit 03/28/25 03/28/25 03/28/25 12:52 12:53 13:04 WBC 7.02 RBC 4.64 Hgb 14.0 Hct 43.7 MCV 94.2 MCH 30.2 MCHC 32.0 RDW Coeff of Camacho 12.8 Plt Count 224 Immature Gran % (Auto) 0.1 Neut % (Auto) 70.2 Lymph % (Auto) 10.4 Dukes % (Auto) 17.5 H Eos % (Auto) 1.1 Baso % (Auto) 0.7 Neut # (Auto) 4.9 Lymph # (Auto) 0.7 Dukes # (Auto) 1.2 Eos # (Auto) 0.1 Baso # (Auto) 0.1 Immature Gran # (Auto) 0.0 Sodium 134.7 Potassium 3.65 Chloride 99.1 Carbon Dioxide 27.8 Anion Gap 11.45 BUN 11.1 Creatinine 0.57 L Estimated GFR (MDRD) 105.00 BUN/Creatinine Ratio 19.47 Glucose 146.8 H Lactic Acid 1.17 Calcium 9.43 Total Bilirubin 1.79 H AST 47.6 H ALT 28.2 Alkaline Phosphatase 48.7 L Troponin I < 0.012 NT-Pro-B Natriuret Pep 139 Total Protein 7.63 Albumin 4.38 Globulin 3.25 Albumin/Globulin Ratio 1.34 Procalcitonin Adenovirus (PCR) B. pertussis DNA (PCR) B.parapertussis DNA PCR C. pneumoniae DNA (PCR) Coronavirus OC43 (PCR) Coronavirus HKU1 (PCR) Coronavirus 229E (PCR) Coronavirus NL63 (PCR) Human Metapneumovir PCR Influenza A (H1) PCR Influ A (H1N1/09) PCR Influenza A (H3) PCR Influenza Type A (PCR) Influ A Molecular Assay Negative by naat Influenza B (RT-PCR) Influ B Molecular Assay Negative by naat M. pneumoniae (PCR) Parainfluenza 1 (PCR) Parainfluenza 2 (PCR) Parainfluenza 3 (PCR) Parainfluenza 4 (PCR) RSV Antigen Negative by naat RSV (PCR) Entero/Rhino (PCR) SARS-CoV-2 (PCR) SARS CoV-2 RNA Rapid GAMALIEL Negative 03/28/25 03/29/25 18:30 05:27 WBC 6.28 RBC 4.18 L Hgb 12.5 Hct 38.8 MCV 92.8 MCH 29.9 MCHC 32.2 RDW Coeff of Camacho 12.7 Plt Count 195 Immature Gran % (Auto) 0.5 Neut % (Auto) 64.9 Lymph % (Auto) 16.9 Dukes % (Auto) 15.8 H Eos % (Auto) 1.6 Baso % (Auto) 0.3 Neut # (Auto) 4.1 Lymph # (Auto) 1.1 Dukes # (Auto) 1.0 Eos # (Auto) 0.1 Baso # (Auto) 0.0 Immature Gran # (Auto) 0.0 Sodium 137.1 Potassium 3.31 L Chloride 99.8 Carbon Dioxide 31.9 H Anion Gap 8.71 BUN 7.1 Creatinine 0.56 L Estimated GFR (MDRD) 107.00 BUN/Creatinine Ratio 12.67 Glucose 134.2 H Lactic Acid Calcium 8.94 Total Bilirubin 0.98 AST 37.1 H ALT 25.1 Alkaline Phosphatase 43.8 L Troponin I NT-Pro-B Natriuret Pep Total Protein 6.54 Albumin 3.69 Globulin 2.85 Albumin/Globulin Ratio 1.29 Procalcitonin < 0.05 Adenovirus (PCR) Not detected B. pertussis DNA (PCR) Not detected B.parapertussis DNA PCR Not detected C. pneumoniae DNA (PCR) Not detected Coronavirus OC43 (PCR) Not detected Coronavirus HKU1 (PCR) Not detected Coronavirus 229E (PCR) Not detected Coronavirus NL63 (PCR) Not detected Human Metapneumovir PCR Not detected Influenza A (H1) PCR Not detected Influ A (H1N1/09) PCR Not detected Influenza A (H3) PCR Not detected Influenza Type A (PCR) Not detected Influ A Molecular Assay Influenza B (RT-PCR) Not detected Influ B Molecular Assay M. pneumoniae (PCR) Not detected Parainfluenza 1 (PCR) Not detected Parainfluenza 2 (PCR) Not detected Parainfluenza 3 (PCR) Not detected Parainfluenza 4 (PCR) Not detected RSV Antigen RSV (PCR) Not detected Entero/Rhino (PCR) Not detected SARS-CoV-2 (PCR) Not detected SARS CoV-2 RNA Rapid G[facility] Imaging Imaging: EXAMINATION: CHEST, 2 VIEWS PA LAT. DATE: 03/28/2025. HISTORY: Cough. COMPARISON: 03/27/2025. FINDINGS: Lines/Devices: None. Cardiomediastinal silhouette: Normal cardiac size. Aortic arch atherosclerosis. Lungs and pleural space: No edema. Hepatic appearing changes in the lungs with paucity of vascular markings superiorly suggesting chronic obstructive pulmonary disease/emphysema. Minimal atelectatic changes at the lung bases greater on the left. No consolidation. No pleural effusion. Osseous structures: No significant abnormality. IMPRESSION: No acute cardiopulmonary abnormality. Chronic obstructive pulmonary disease/emphysema. Aortic atherosclerotic vascular disease. Basilar atelectatic changes greater on the left. EXAM: CHEST CT WITHOUT CONTRAST HISTORY: Hypoxia, shortness of breath TECHNIQUE: CT acquisition of the chest from the thoracic inlet to the upper abdomen without IV contrast administration. CT Dose Reduction Techniques Performed: Yes COMPARISON: 10/20/2018 CT FINDINGS: Lines, Tubes, Devices: None. Lung Parenchyma and Airways: Bilateral peribronchial wall thickening is now seen. There is opacification of some left lower lobe bronchioles. Severe emphysematous changes are again seen. There is mild right lower lobe atelectasis. Mild multifocal right upper lobe, mild right lower lobe and minimal left lower lobe tree in bud type nodularity is identified. Pleural Space: No pleural effusion. No pleural thickening. There is asymmetric enlargement of the left thyroid lobe. Thoracic Inlet, Mediastinum, and Antonina: Thyroid gland is normal in appearance. No lymphadenopathy. Heart, Vessels, and Pericardium: Heart size is normal. There is no pericardial effusion or pericardial thickening. Bones and Soft Tissues: Mild degenerative changes of the spine. Chest wall soft tissues are within normal limits. Upper Abdomen: Small hiatal hernia. Status post cholecystectomy. Hepatic cysts and other hypodensities too small to accurately characterize. IMPRESSION: Bronchitis with mild left lower lobe bronchiolar mucous plugging. Mild bilateral bronchiolitis. Mild right lower lobe atelectasis Severe emphysema. Review Statement Review Statement: I have independently reviewed and interpreted the labs/EKGs/imaging that were ordered by the ER provider. I have reviewed all outside records that are available currently in our EMR including imaging/notes/labs from previous visits. Plan Plan: 1. Acute hypoxic respiratory failure in setting of acute bronchitis/ bronchiolitis and COPD exacerbation - Wean o2 when able, abx/steroids/duonebs 2. Acute bronchitis/bronchiolitis - Discussed this is usually viral, however patient prefers to be treated with abx, feels it really made a difference yesterday. Will give azith daily. 3. Acute COPD exacerbation - abx/steroids/duonebs. This is a new diagnosis for her. She will need outpatient PFT and f/u. 4. Hypertension - Cont home meds 5. Hypothyroidism - Cont home meds DVT Prophylaxis: Ambulation Time Spent: Greater than 80 minutes spent with patient, 50% of the time spent with this patient was devoted to counseling and coordination of care. [facility] minutes spent discussing advance care planning. Admit to: Obs to inpatient today Discussed Plan of Care with Dr. Cass Castañeda. Medications Medication Orders: Medications Ordered Category Date Time Status 0.9 % Sodium Chloride [Saline Flush] Meds 03/28/25 16:01 Active 1 syr IVF PRN PRN 0.9 % Sodium Chloride [Saline Flush] Meds 03/28/25 21:00 Active 1 syr IVF Q8HR Acetaminophen [Tylenol] Meds 03/28/25 15:00 Active 650 mg PO Q4H PRN Amlodipine Besylate [Norvasc] Meds 03/28/25 21:00 Active 2.5 mg PO BEDTIME Azithromycin Inj [Zithromax] 500 mg Meds 03/29/25 10:45 Active 0.9 % Sodium Chloride [Sodium Chloride] 250 ml IV DAILY Benzonatate [Tessalon Perles] Meds 03/28/25 16:13 Active 100 mg PO TID PRN Cyclobenzaprine HCl [Flexeril] Meds 03/28/25 21:00 Active 5 mg PO BEDTIME Guaifenesin/Dextromethorphan [Robitussin Dm Syrup] Meds 03/28/25 16:13 Active 10 ml PO Q4H PRN Ipratropium/Albuterol Neb [Duoneb] Meds 03/28/25 15:00 Active 3 ml NEB RTQ6H PRN Levothyroxine Sodium [Synthroid] Meds 03/29/25 21:00 Active 150 mcg PO BEDTIME Losartan Potassium [Cozaar] Meds 03/28/25 21:00 Active 50 mg PO BEDTIME Meclizine HCl [Antivert] Meds 03/28/25 16:12 Active 25 mg PO QID PRN DIZ Dizziness Metoprolol Succinate [Toprol Xl] Meds 03/28/25 21:00 Active 100 mg PO BEDTIME Nystatin [Nystatin Oral Susp] Meds 03/28/25 17:00 Active 5 ml PO ACHS2 Ondansetron HCl/Pf [Zofran Sdv] Meds 03/28/25 15:00 Active 4 mg IVP Q6H PRN Prednisone Meds 03/29/25 11:00 Active 20 mg PO BID
[2025-03-29] MEDS ORDERED: SOLU-MEDROL 40 MG IVP SCH (13:00)
[2025-03-29] MEDS: SYNTHROID PO SCH (20:24)
[2025-03-30 06:11] LABS: IMMATURE GRANULOCYTE # (AUTO) 0.1 (0.0-1.0); IMMATURE GRANULOCYTE % (AUTO) 1.6 % (0.0-5.0); RDW COEFFICIENT OF VARIATION 12.5 % (11.6-14.8)
[2025-03-30 06:26] LABS: CREATININE 0.51 mg/dL (0.60-1.30)
--- NOTE | 2025-03-30 11:29 | PCM.PROG ---
Date/Time Seen Date Seen by Provider: 03/30/25 Time Seen by Provider: 09:30 Provider Provider: [facility]ANDY SHARP [facility]C, [facility] Chief Complaint Chief Complaint: PNEUMONIA Subjective Subjective: Patient is feeling better today. She states she is not short of breath at rest or with exertion. She still has a productive cough but she feels as if it is improving. Denies fever, chills, headache, or nasal congestion. She has been weened off of oxyegn. 3 step was performed and O2 dropped down to 88%. Objective Appearance: Positive Well-appearing, Well-nourished, No Apparent Distress and Alert and Oriented x3 Chest/Lungs: Positive Symmetrical With Equal Breath Sounds, Clear to Auscultation Bilaterally and Good Air Movement all 4 Lung Carlson; Negative Rales, Rhonci or Wheezes Heart: Positive RRR GI/: Positive Soft, Nontender, Bowel Sounds Normal and No Distention Neurological: Positive Sensation Intact, Motor intact, Cranial Nerves Intact, Alert and Oriented Vital Signs Vital Signs: Vital Signs: Last 24 Hours 03/29/25 13:00 03/29/25 14:00 03/29/25 14:00 Temperature 98.1 F Temperature Source Temporal Artery Scan Pulse Rate 96 Respiratory Rate 18 Blood Pressure 150/78 H Blood Pressure Mean 102 Blood Pressure Location Left Arm Blood Pressure Position O2 Sat by Pulse Oximetry 91 L 92 L Oxygen Delivery Method Nasal Cannula Nasal Cannula Oxygen Flow Rate 1 1 Telemetry Type Remote Telemetry Telemetry Monitoring Continues Irregular Telemetry Rate (Approximate) Telemetry Heart Rate 94 Telemetry SPO2 94 EKG FL Interval 0.18 EKG QRS Interval 0.07 Telemetry Strip Reading SR w/PVC's 03/29/25 18:00 03/29/25 19:00 03/29/25 20:00 Temperature 97.7 F Temperature Source Temporal Artery Scan Pulse Rate 91 Respiratory Rate 14 Blood Pressure 116/67 Blood Pressure Mean 83 Blood Pressure Location Right Arm Blood Pressure Position Supine O2 Sat by Pulse Oximetry 96 Oxygen Delivery Method Nasal Cannula Nasal Cannula Oxygen Flow Rate 1 1 Telemetry Type Remote Telemetry Telemetry Monitoring Continues Irregular Telemetry Rate (Approximate) Telemetry Heart Rate 92 Telemetry SPO2 95 EKG FL Interval 0.16 EKG QRS Interval 0.08 Telemetry Strip Reading SR 03/29/25 20:45 03/29/25 21:30 03/30/25 01:00 Temperature 98.3 F Temperature Source Temporal Artery Scan Pulse Rate 92 Respiratory Rate 18 18 Blood Pressure 144/88 H Blood Pressure Mean 106 Blood Pressure Location Left Arm Blood Pressure Position Supine O2 Sat by Pulse Oximetry 93 L Oxygen Delivery Method Nasal Cannula Nasal Cannula Oxygen Flow Rate 2 1 Telemetry Type Remote Telemetry Telemetry Monitoring Continues Irregular Telemetry Rate (Approximate) 70-80 BPM Telemetry Heart Rate 72 Telemetry SPO2 EKG FL Interval 0.16 EKG QRS Interval 0.07 Telemetry Strip Reading NSR 03/30/25 02:00 03/30/25 05:35 03/30/25 06:00 Temperature 97 F L 98.1 F Temperature Source Temporal Artery Scan Temporal Artery Scan Pulse Rate 78 70 Respiratory Rate 20 18 Blood Pressure 156/83 H 175/67 H Blood Pressure Mean 107 103 Blood Pressure Location Left Arm Left Arm Blood Pressure Position Supine Supine O2 Sat by Pulse Oximetry 94 L 96 94 L Oxygen Delivery Method Nasal Cannula Nasal Cannula Nasal Cannula Oxygen Flow Rate 1 1 2 Telemetry Type Telemetry Monitoring Irregular Telemetry Rate (Approximate) Telemetry Heart Rate Telemetry SPO2 EKG FL Interval EKG QRS Interval Telemetry Strip Reading 03/30/25 09:19 03/30/25 09:35 Temperature Temperature Source Pulse Rate Respiratory Rate Blood Pressure Blood Pressure Mean Blood Pressure Location Blood Pressure Position O2 Sat by Pulse Oximetry 94 L 95 Oxygen Delivery Method Nasal Cannula Room Air Oxygen Flow Rate 1 Telemetry Type Telemetry Monitoring Irregular Telemetry Rate (Approximate) Telemetry Heart Rate Telemetry SPO2 EKG FL Interval EKG QRS Interval Telemetry Strip Reading Lab Results Lab Results: Lab Results: Last 24 Hours 03/30/25 06:00 WBC 5.77 RBC 4.18 L Hgb 12.8 Hct 39.3 MCV 94.0 MCH 30.6 MCHC 32.6 RDW Coeff of [place] 12.5 Plt Count 236 Immature Gran % (Auto) 1.6 Neut % (Auto) 76.0 H Lymph % (Auto) 13.0 [place] % (Auto) 8.7 Eos % (Auto) 0.2 Baso % (Auto) 0.5 Neut # (Auto) 4.4 Lymph # (Auto) 0.8 [place] # (Auto) 0.5 Eos # (Auto) 0.0 Baso # (Auto) 0.0 Immature Gran # (Auto) 0.1 Sodium 138.3 Potassium 4.00 Chloride 100.8 Carbon Dioxide 31.9 H Anion Gap 9.60 BUN 10.0 Creatinine 0.51 L Estimated GFR (MDRD) 120.00 BUN/Creatinine Ratio 19.60 Glucose 181.6 H Calcium 9.28 Total Bilirubin 0.62 AST 26.9 ALT 26.0 Alkaline Phosphatase 46.4 L Total Protein 6.64 Albumin 3.69 Globulin 2.95 Albumin/Globulin Ratio 1.25 Additional Comments Additional Comments: I have independently reviewed and interpreted the labs/EKGs/imaging ordered during this hospital stay. I have reviewed outside records that are available in our EMR that pertain to medical stay including imaging/notes/labs from previous visits. Active Medications Active Medications: Medications Generic Name Dose Route Start Last Admin Trade Name Freq PRN Reason Stop Dose Admin Acetaminophen 650 mg 03/28/25 15:00 03/28/25 21:12 Acetaminophen 325 Mg Tablet PO 650 mg Q4H PRN Administration Mild Pain Albuterol/Ipratropium 3 ml 03/28/25 15:00 Ipratropium/Albuterol Vial.Neb NEB RTQ6H PRN Wheezing Amlodipine Besylate 2.5 mg 03/28/25 21:00 03/29/25 20:24 Amlodipine Besylate 5 Mg Tablet PO 2.5 mg BEDTIME MARIANNA Administration Benzonatate 100 mg 03/28/25 16:13 Benzonatate 100 Mg Capsule PO TID PRN Cough Cyclobenzaprine HCl 5 mg 03/28/25 21:00 03/29/25 20:24 Cyclobenzaprine Hcl 10 Mg Tablet PO 5 mg BEDTIME MARIANNA Administration Guaifenesin/Dextromethorphan 10 ml 03/28/25 16:13 Guaifenesin/Dextromethorphan 200/20 Mg/10 Ml Cup PO Q4H PRN Cough Levothyroxine Sodium 150 mcg 03/29/25 21:00 03/29/25 20:24 Levothyroxine Sodium 75 Mcg Tablet PO 150 mcg BEDTIME MARIANNA Administration Losartan Potassium 50 mg 03/28/25 21:00 03/29/25 20:24 Losartan Potassium 25 Mg Tablet PO 50 mg BEDTIME MARIANNA Administration Meclizine HCl 25 mg 03/28/25 16:12 Meclizine Hcl 25 Mg Tablet PO QID PRN Dizziness Metoprolol Succinate 100 mg 03/28/25 21:00 03/29/25 20:24 Metoprolol Succinate 50 Mg Tab.Er.24h PO 100 mg BEDTIME MARIANNA Administration Ondansetron HCl 4 mg 03/28/25 15:00 03/29/25 06:23 Ondansetron Hcl/Pf 4 Mg/2 Ml Sdv IVP 4 mg Q6H PRN Administration Nausea / Vomiting Prednisone 20 mg 03/29/25 11:00 03/30/25 08:18 Prednisone 20 Mg Tablet PO 20 mg BID MARIANNA Administration Sodium Chloride 1 syr 03/28/25 21:00 03/30/25 05:51 0.9% Sodium Chloride 10 Ml Disp.Syrin IVF 1 syr Q8HR MARIANNA Administration Sodium Chloride 1 syr 03/28/25 16:01 0.9% Sodium Chloride 10 Ml Disp.Syrin IVF PRN PRN Maintain IV Patency Plan Plan: 1. Acute hypoxic respiratory failure in setting of acute bronchitis/bronchiolitis and COPD exacerbation - Has been weened off O2, continue abx/steroids/duonebs 2. Acute bronchitis/bronchiolitis - Discussed this is usually viral, however patient prefers to be treated with abx, feels it really made a difference. Continue azith daily. 3. Acute COPD exacerbation - abx/steroids/duonebs. This is a new diagnosis for her. She will need outpatient PFT and f/u. 4. Hypertension - Cont home meds 5. Hypothyroidism - Cont home meds DVT Prophylaxis: Ambulation Dispo: Patient failed 3 step. Will give another 24 hours of treatment and reevaluate tomorrow. Review Statement Review Statement: I have personally discussed and reviewed the patient's visit/currently labs/imaging/decision making with Dr. Castañeda, my supervising attending. Greater that 50 minutes spent with patient, 50% of the time spent with this patient was devoted to counseling and coordination of care.
[2025-03-30] MEDS: DUONEB NEB PRN (17:58)
--- NOTE | 2025-03-31 10:47 | PCM.PROG ---
Date/Time Seen Date Seen by Provider: 03/31/25 Time Seen by Provider: 09:30 Provider [facility] Chief Complaint Chief Complaint: PNEUMONIA Subjective Subjective: Patient is doing well. She denies dyspnea at rest or during short exertion. She still has a productive cough that is continuing to improve. She was off oxygen yesterday until she started dropping during the night. She was put on 1.5 L. She is now back on room air. States says she snores and there may be some underlying sleep apnea. 3 step was repeated today and oxygen dropped to 78-80%. Objective Appearance: Positive Well-appearing, Well-nourished, No Apparent Distress and Alert and Oriented x3 Chest/Lungs: Positive Symmetrical With Equal Breath Sounds, Clear to Auscultation Bilaterally and Good Air Movement all 4 Lung Carlson; Negative Rales, Rhonci or Wheezes Heart: Positive RRR GI/: Positive Soft, Nontender, Bowel Sounds Normal and No Distention Neurological: Positive Sensation Intact, Motor intact, Cranial Nerves Intact, Alert and Oriented Vital Signs Vital Signs: Vital Signs: Last 24 Hours 03/30/25 13:00 03/30/25 14:00 03/30/25 14:00 Temperature 99.3 F Temperature Source Temporal Artery Scan Pulse Rate 88 Respiratory Rate 19 Blood Pressure 146/81 H Blood Pressure Mean 102 Blood Pressure Location Left Arm Blood Pressure Position Sitting O2 Sat by Pulse Oximetry 92 L Oxygen Delivery Method Room Air Room Air Oxygen Flow Rate Telemetry Type Remote Telemetry Telemetry Monitoring Continues Telemetry Heart Rate 91 Telemetry SPO2 94 EKG NE Interval 0.14 EKG QRS Interval 0.06 Telemetry Strip Reading SR 03/30/25 18:00 03/30/25 19:00 03/30/25 19:37 Temperature 98.2 F Temperature Source Temporal Artery Scan Pulse Rate 84 Respiratory Rate 19 Blood Pressure 163/87 H Blood Pressure Mean 112 Blood Pressure Location Left Arm Blood Pressure Position Sitting O2 Sat by Pulse Oximetry 93 L Oxygen Delivery Method Room Air Room Air Oxygen Flow Rate Telemetry Type Remote Telemetry Telemetry Monitoring Continues Telemetry Heart Rate 100 Telemetry SPO2 92 L EKG NE Interval 0.18 EKG QRS Interval 0.07 Telemetry Strip Reading SR 03/30/25 21:00 03/30/25 21:38 03/31/25 01:00 Temperature 97.8 F Temperature Source Temporal Artery Scan Pulse Rate 92 Respiratory Rate 20 Blood Pressure 141/81 H Blood Pressure Mean 101 Blood Pressure Location Left Arm Blood Pressure Position Supine O2 Sat by Pulse Oximetry 94 L Oxygen Delivery Method Nasal Cannula Room Air Oxygen Flow Rate 2 Telemetry Type Remote Telemetry Telemetry Monitoring Continues Telemetry Heart Rate 98 Telemetry SPO2 91 L EKG NE Interval 0.16 EKG QRS Interval 0.07 Telemetry Strip Reading SR 03/31/25 02:00 03/31/25 05:45 03/31/25 05:48 Temperature 97.9 F 98.4 F Temperature Source Temporal Artery Scan Temporal Artery Scan Pulse Rate 79 78 Respiratory Rate 18 18 Blood Pressure 144/88 H 149/77 H Blood Pressure Mean 106 101 Blood Pressure Location Left Arm Left Arm Blood Pressure Position Supine Supine O2 Sat by Pulse Oximetry 96 95 95 Oxygen Delivery Method Nasal Cannula Nasal Cannula Nasal Cannula Oxygen Flow Rate 2 1.5 1.5 Telemetry Type Telemetry Monitoring Telemetry Heart Rate Telemetry SPO2 EKG NE Interval EKG QRS Interval Telemetry Strip Reading 03/31/25 07:00 03/31/25 08:00 03/31/25 09:12 Temperature Temperature Source Pulse Rate Respiratory Rate Blood Pressure Blood Pressure Mean Blood Pressure Location Blood Pressure Position O2 Sat by Pulse Oximetry 92 L Oxygen Delivery Method Room Air Room Air Oxygen Flow Rate Telemetry Type Remote Telemetry Telemetry Monitoring Continues Telemetry Heart Rate 78 Telemetry SPO2 91 L EKG NE Interval 0.16 EKG QRS Interval 0.08 Telemetry Strip Reading SR 03/31/25 10:00 Temperature 97.9 F Temperature Source Temporal Artery Scan Pulse Rate 87 Respiratory Rate Blood Pressure 146/82 H Blood Pressure Mean 103 Blood Pressure Location Right Arm Blood Pressure Position Supine O2 Sat by Pulse Oximetry 92 L Oxygen Delivery Method Nasal Cannula Oxygen Flow Rate Telemetry Type Telemetry Monitoring Telemetry Heart Rate Telemetry SPO2 EKG NE Interval EKG QRS Interval Telemetry Strip Reading Lab Results Lab Results: Lab Results: Last 24 Hours 03/30/25 06:00 WBC 5.77 RBC 4.18 L Hgb 12.8 Hct 39.3 MCV 94.0 MCH 30.6 MCHC 32.6 RDW Coeff of [place] 12.5 Plt Count 236 Immature Gran % (Auto) 1.6 Neut % (Auto) 76.0 H Lymph % (Auto) 13.0 [place] % (Auto) 8.7 Eos % (Auto) 0.2 Baso % (Auto) 0.5 Neut # (Auto) 4.4 Lymph # (Auto) 0.8 [place] # (Auto) 0.5 Eos # (Auto) 0.0 Baso # (Auto) 0.0 Immature Gran # (Auto) 0.1 Sodium 138.3 Potassium 4.00 Chloride 100.8 Carbon Dioxide 31.9 H Anion Gap 9.60 BUN 10.0 Creatinine 0.51 L Estimated GFR (MDRD) 120.00 BUN/Creatinine Ratio 19.60 Glucose 181.6 H Calcium 9.28 Total Bilirubin 0.62 AST 26.9 ALT 26.0 Alkaline Phosphatase 46.4 L Total Protein 6.64 Albumin 3.69 Globulin 2.95 Albumin/Globulin Ratio 1.25 Additional Comments Additional Comments: I have independently reviewed and interpreted the labs/EKGs/imaging ordered during this hospital stay. I have reviewed outside records that are available in our EMR that pertain to medical stay including imaging/notes/labs from previous visits. Active Medications Active Medications: Medications Generic Name Dose Route Start Last Admin Trade Name Freq PRN Reason Stop Dose Admin Acetaminophen 650 mg 03/28/25 15:00 03/28/25 21:12 Acetaminophen 325 Mg Tablet PO 650 mg Q4H PRN Administration Mild Pain Albuterol/Ipratropium 3 ml 03/28/25 15:00 03/31/25 09:27 Ipratropium/Albuterol Vial.Neb NEB 3 ml RTQ6H PRN Administration Wheezing Amlodipine Besylate 2.5 mg 03/28/25 21:00 03/30/25 20:36 Amlodipine Besylate 5 Mg Tablet PO 2.5 mg BEDTIME MARIANNA Administration Benzonatate 100 mg 03/28/25 16:13 Benzonatate 100 Mg Capsule PO TID PRN Cough Cyclobenzaprine HCl 5 mg 03/28/25 21:00 03/30/25 20:36 Cyclobenzaprine Hcl 10 Mg Tablet PO 5 mg BEDTIME MARIANNA Administration Guaifenesin/Dextromethorphan 10 ml 03/28/25 16:13 Guaifenesin/Dextromethorphan 200/20 Mg/10 Ml Cup PO Q4H PRN Cough Levothyroxine Sodium 150 mcg 03/29/25 21:00 03/30/25 20:35 Levothyroxine Sodium 75 Mcg Tablet PO 150 mcg BEDTIME MARIANNA Administration Losartan Potassium 50 mg 03/28/25 21:00 03/30/25 20:35 Losartan Potassium 25 Mg Tablet PO 50 mg BEDTIME MARIANNA Administration Meclizine HCl 25 mg 03/28/25 16:12 Meclizine Hcl 25 Mg Tablet PO QID PRN Dizziness Metoprolol Succinate 100 mg 03/28/25 21:00 03/30/25 20:35 Metoprolol Succinate 50 Mg Tab.Er.24h PO 100 mg BEDTIME MARIANNA Administration Ondansetron HCl 4 mg 03/28/25 15:00 03/29/25 06:23 Ondansetron Hcl/Pf 4 Mg/2 Ml Sdv IVP 4 mg Q6H PRN Administration Nausea / Vomiting Prednisone 20 mg 03/29/25 11:00 03/31/25 08:45 Prednisone 20 Mg Tablet PO 20 mg BID MARIANNA Administration Sodium Chloride 1 syr 03/28/25 21:00 03/31/25 05:33 0.9% Sodium Chloride 10 Ml Disp.Syrin IVF 1 syr Q8HR MARIANNA Administration Sodium Chloride 1 syr 03/28/25 16:01 0.9% Sodium Chloride 10 Ml Disp.Syrin IVF PRN PRN Maintain IV Patency Plan Plan: 1. Acute hypoxic respiratory failure in setting of acute bronchitis/bronchiolitis and COPD exacerbation - Has been weened off O2, but desats with ambulation into 80s, continue abx/steroids/duonebs 2. Acute bronchitis/bronchiolitis - Will add Rocephin today and increase steroids. 3. Acute COPD exacerbation - abx/steroids/duonebs. This is a new diagnosis for her. She will need outpatient PFT and f/u. 4. Hypertension - Cont home meds 5. Hypothyroidism - Cont home meds DVT Prophylaxis: Ambulation Dispo: Patient failed her repeat 3 step. Will give another 24 hours of treatment and reevaluate tomorrow. Review Statement Review Statement: I have personally discussed and reviewed the patient's visit/currently labs/imaging/decision making with Dr. Castañeda, my supervising attending. Greater that 50 minutes spent with patient, 50% of the time spent with this patient was devoted to counseling and coordination of care.
[2025-03-31] MEDS: ROCEPHIN 1 GM/50 ML D5W 1 GM/50 ML BAG IV SCH (12:44)
[2025-03-31] MEDS: SOLU-MEDROL 40 MG IVP SCH (12:45)
[2025-03-31] MEDS: ZITHROMAX 500 MG in SODIUM CHLORIDE 250 ML IV SCH (14:01)
[2025-03-31] MEDS: SODIUM CHLORIDE 1,000 ML IV SCH (14:02)
[2025-04-01 05:31] LABS: IMMATURE GRANULOCYTE # (AUTO) 0.8 (0.0-1.0); IMMATURE GRANULOCYTE % (AUTO) 6.1 % (0.0-5.0); RDW COEFFICIENT OF VARIATION 12.3 % (11.6-14.8)
[2025-04-01 05:46] LABS: CREATININE 0.52 mg/dL (0.60-1.30)
[2025-04-01] MEDS: COLACE PO PRN (08:33)
[2025-04-01] MEDS: DULCOLAX PO ONE (08:33)
[2025-04-01] MEDS: MIRALAX PO PRN (08:33)
--- NOTE | 2025-04-01 10:43 | DCSUM ---
Admission Date Admission Date: 03/28/25 Discharge Date Discharge Date: 04/01/25 Admission Diagnosis Admission Diagnosis: 1. Acute hypoxic respiratory failure in setting of acute bronchitis/bronchiolitis and COPD exacerbation 2. Acute bronchitis/bronchiolitis 3. Acute COPD exacerbation 4. Hypertension 5. Hypothyroidism Discharge Diagnosis Discharge Diagnosis: 1. Acute hypoxic respiratory failure in setting of acute bronchitis/bronchiolitis and COPD exacerbation - Desats with ambulation into 80s, d/c home with continous O2 at 2L 2. Acute bronchitis/bronchiolitis - Improving 3. Acute COPD exacerbation - Improving, outpatient PFT ordered to confirm formal COPD diagnosis 4. Hypertension - Cont home meds 5. Hypothyroidism - Cont home meds Hospital Provider Hospital Provider: MAURO DECKER, [facility] [place] Primary Care Physician Primary Care Physician: TIM WILL Summary of History and Physical Summary of History and Physical: Patient is a 69 year old female with pmhx of hypothyroidism, hypertension who presents to ER with worsening SOB. She started feeling unwell almost one week ago. Started with headache, loose stool x1, productive cough, and drainage. She's continued to feel more SOB. She was evaluated in the ER on 03/27. Workup was negative including a negative chest x-ray. She was sent home with conservative measures. She returned on 03/28. Chest x-ray still negative and labs overall unremarkable, however she was noted to be hypoxic in the 80s and placed on 2 L. Patient was given azithromycin and Rocephin. Admitted to [facility]. Today she is still having a productive cough and overall not feeling well. However she states she does feel better since receiving antibiotics yesterday. Viral panel was negative. She does have an anaphylactic reaction to contrast in the past. CT chest without is showing bronchitis/bronchiolitis and severe emphysema. She has not been diagnosed with COPD in the past she does have a history of smoking but quit many years ago. She states she has multiple family members with COPD. Hospital Course Subjective: During stay, patient was treated for COPD with rocephin, azith, steroids, and nebs. Feeling much better this am. However, multiple attempts to wean off of oxygen failed. Continues to require 2L at all times. Significantly drops during sleep and would benefit from sleep study upon discharge. Due to severe emphysema on CT scan as well as new oxygen need, PFT ordered outpatient for formal COPD diagnosis. Mild leukocytosis, likely due to steroids. Discharged with rest of course of steroids, azith, and cefpodoxime. Was prescribed rescue inhaler during ER visit. Instructed to continue use as needed for sob. Follow-up with PCP. Appearance: Pleasant, No Apparent Distress and Alert HEENT: MMM, Supple and No JVD CVS: No Murmur Abdomen: Soft, Non-Tender and No Distention Respiratory: No Dyspnea Extremities: No Edema Vital Signs: Most Recent Vital Signs Temperature 98.1 F 04/01/25 05:32 Temperature Source Temporal Artery Scan 04/01/25 05:32 Temperature Source Temporal Artery Scan 03/28/25 12:33 Pulse Rate 78 04/01/25 05:32 Respiratory Rate 18 04/01/25 05:32 Blood Pressure 170/94 H 04/01/25 05:32 Blood Pressure Mean 119 04/01/25 05:32 Blood Pressure Right Arm 135/75 03/28/25 15:16 Blood Pressure Location Left Arm 04/01/25 05:32 Blood Pressure Position Supine 04/01/25 05:32 O2 Sat by Pulse Oximetry 92 L 04/01/25 05:44 Oxygen Delivery Method Room Air 04/01/25 08:00 Oxygen Flow Rate 1.5 04/01/25 01:29 Height 5 ft 8 in 03/28/25 15:16 Weight 114 kg 03/28/25 16:33 Telemetry Type Remote Telemetry 04/01/25 07:00 Telemetry Monitoring Continues 04/01/25 07:00 Irregular Telemetry Rate (Approximate) 70-80 BPM 03/30/25 01:00 Telemetry Heart Rate 76 04/01/25 07:00 Telemetry SPO2 94 04/01/25 07:00 EKG OR Interval 0.14 04/01/25 07:00 EKG QRS Interval 0.08 04/01/25 07:00 Telemetry Strip Reading SR 04/01/25 07:00 Imaging: EXAMINATION: CHEST, 2 VIEWS PA LAT. DATE: 03/28/2025. HISTORY: Cough. COMPARISON: 03/27/2025. FINDINGS: Lines/Devices: None. Cardiomediastinal silhouette: Normal cardiac size. Aortic arch atherosclerosis. Lungs and pleural space: No edema. Hepatic appearing changes in the lungs with paucity of vascular markings superiorly suggesting chronic obstructive pulmonary disease/emphysema. Minimal atelectatic changes at the lung bases greater on the left. No consolidation. No pleural effusion. Osseous structures: No significant abnormality. IMPRESSION: No acute cardiopulmonary abnormality. Chronic obstructive pulmonary disease/emphysema. Aortic atherosclerotic vascular disease. Basilar atelectatic changes greater on the left. EXAM: CHEST CT WITHOUT CONTRAST HISTORY: Hypoxia, shortness of breath TECHNIQUE: CT acquisition of the chest from the thoracic inlet to the upper abdomen without IV contrast administration. CT Dose Reduction Techniques Performed: Yes COMPARISON: 10/20/2018 CT FINDINGS: Lines, Tubes, Devices: None. Lung Parenchyma and Airways: Bilateral peribronchial wall thickening is now seen. There is opacification of some left lower lobe bronchioles. Severe emphysematous changes are again seen. There is mild right lower lobe atelectasis. Mild multifocal right upper lobe, mild right lower lobe and minimal left lower lobe tree in bud type nodularity is identified. Pleural Space: No pleural effusion. No pleural thickening. There is asymmetric enlargement of the left thyroid lobe. Thoracic Inlet, Mediastinum, and Antonina: Thyroid gland is normal in appearance. No lymphadenopathy. Heart, Vessels, and Pericardium: Heart size is normal. There is no pericardial effusion or pericardial thickening. Bones and Soft Tissues: Mild degenerative changes of the spine. Chest wall soft tissues are within normal limits. Upper Abdomen: Small hiatal hernia. Status post cholecystectomy. Hepatic cysts and other hypodensities too small to accurately characterize. IMPRESSION: Bronchitis with mild left lower lobe bronchiolar mucous plugging. Mild bilateral bronchiolitis. Mild right lower lobe atelectasis. Severe emphysema. Lab Results Last 24 Hours: 04/01/25 05:14 WBC 12.55 H D RBC 4.47 Hgb 13.6 Hct 41.6 MCV 93.1 MCH 30.4 MCHC 32.7 RDW Coeff of [place]acho 12.3 Plt Count 292 Immature Gran % (Auto) 6.1 H Neut % (Auto) 79.5 H Lymph % (Auto) 8.9 L [place] % (Auto) 5.1 Eos % (Auto) 0.0 Baso % (Auto) 0.4 Neut # (Auto) 10.0 H Lymph # (Auto) 1.1 [place] # (Auto) 0.6 Eos # (Auto) 0.0 Baso # (Auto) 0.1 Immature Gran # (Auto) 0.8 Sodium 136.4 Potassium 4.47 Chloride 100.8 Carbon Dioxide 32.4 H Anion Gap 7.67 BUN 13.1 Creatinine 0.52 L Estimated GFR (MDRD) 117.00 BUN/Creatinine Ratio 25.19 Glucose 201.8 H Calcium 9.05 Total Bilirubin 0.57 AST 22.6 ALT 26.8 Alkaline Phosphatase 46.3 L Total Protein 6.41 Albumin 3.69 Globulin 2.72 Albumin/Globulin Ratio 1.35 Discharge Instructions Discharge Planning: Discharge Planning > 40 minutes If patient is discharged with left ventricular systolic dysfunction: na Discharged with a beta otilia? [] If no, why not? [] Discharged with an cydney/arb? [] If no, why not? [] Discharge Medications: Medications at Discharge (Home Meds & RX) levothyroxine 150 mcg tablet (Synthroid) 150 mcg PO BEDTIME 04/26/13 piroxicam 20 mg capsule (Feldene) 20 mg PO 3 TIMES PER WEEK 04/26/13 losartan 50 mg tablet 50 mg PO QHS 12/16/16 coenzyme Q10 100 mg capsule (Co Q-10) 50 mg PO BEDTIME 10/20/18 magnesium oxide 420 mg tablet 400 mg PO QHS 08/11/21 dodie root extract 50 mg tablet 1,100 mg PO DAILY 05/01/22 amlodipine 2.5 mg tablet 2.5 mg PO QHS 09/04/23 cyclobenzaprine 5 mg tablet 5 mg PO BEDTIME 09/04/23 meclizine 25 mg tablet 25 mg PO QID PRN dizziness #60 tabs 11/29/23 metoclopramide HCl 10 mg tablet (Reglan) 10 mg PO Q6H PRN nausea and vomiting #30 tabs 11/29/23 albuterol sulfate 90 mcg/actuation breath activated powder inhaler 1 inh inhalation Q4-6H PRN shortness of breath or wheezing #1 ea 03/27/25 metoprolol succinate 100 mg tablet,extended release 24 hr 100 mg PO QHS 03/27/25 ondansetron 4 mg disintegrating tablet 4 mg PO Q8H PRN nausea and vomiting #30 tabs 03/27/25 oxymetazoline 0.05 % nasal spray 2 spray intranasal Q12H PRN nasal congestion 3 days #22 mL 03/27/25 K2 Plus D3 spray inhalation QHS 03/28/25 vitamin C 500 mg-quercetin 225 mg-bioflavonoids, citrus 33 mg capsule (Quercetin Complex) cap PO .DAILY AM 03/28/25 azithromycin 500 mg tablet See Rx Instructions PO .COMPLEX #3 tabs 04/01/25 cefpodoxime 200 mg tablet 200 mg PO BID 5 days #10 tabs 04/01/25 prednisone 10 mg tablet 10 mg PO DAILY #5 tabs 04/01/25 Discharge Plan Discharge Discharge Orders: Discharge Patient (ONCE); Ordered 04/01/25 Ordered By: MADDY SHOEMAKER Activity Restrictions/Additional Instructions: Diagnosis: COPD Diet: Low salt Activity as tolerated. Oxygen: 2L at all times A pulmonary function test has been ordered for you at [facility]. This is scheduled for 04/08/25 at 11am. Please call [phone] if you have any further questions or need to reschedule. Medications: [facility] * Prednisone 10 mg daily x 5 days - start tomorrow * Cefpodoxime 200 mg twice a day x 5 days - start tomorrow * Azithromycin 500 mg daily x 3 days - start tomorrow Follow-up with primary care provider. Discuss need for sleep study at this appointment due to concerns for sleep apnea during your hospitalization. Instructions: Using Oxygen at Home (GEN), COPD (Chronic Obstructive Pulmonary Disease) (GEN), Pulmonary Function Tests (DC) Patient Disposition: HOME SELF-CARE Prescriptions: New cefpodoxime 200 mg Tablet 200 mg PO BID 5 Days Qty: 10 0RF Rx Instructions: must administer with a meal/food azithromycin 500 mg tablet See Rx Instructions .ROUTE .COMPLEX Qty: 3 0RF Rx Instructions: For 500 mg dose pack: take 500 mg once daily for 3 days prednisone 10 mg tablet 10 mg PO DAILY Qty: 5 0RF Continued levothyroxine [Synthroid] 150 MCG tablet 150 mcg PO BEDTIME piroxicam [Feldene] 20 MG capsule 20 mg PO 3 TIMES PER WEEK magnesium oxide 420 mg Tablet 400 mg PO QHS dodie root extract 50 mg Tablet 1,100 mg PO DAILY metoprolol succinate 100 mg tablet extended release 24 hr 100 mg PO QHS Patient Comments: [NO ORIGINAL SIG] ondansetron 4 mg tablet,disintegrating 4 mg PO Q8H PRN (Reason: nausea and vomiting) Qty: 30 0RF Rx Instructions: Do not take with Promethazine oxymetazoline 0.05 % spray,non-aerosol 2 spray intranasal Q12H PRN (Reason: nasal congestion) 3 Days Qty: 22 0RF Patient Comments: Has not started med; Reports no nasal congestion albuterol sulfate 90 mcg/actuation aerosol powdr breath activated 1 inh inhalation Q4-6H PRN (Reason: shortness of breath or wheezing) Qty: 1 0RF Quercetin Complex 500-225-33 mg capsule PO .DAILY AM K2 Plus D3 spray nasal spray syringe inhalation QHS losartan 50 MG tablet 50 mg PO QHS coenzyme Q10 [Co Q-10] 100 MG capsule 50 mg PO BEDTIME amlodipine 2.5 mg tablet 2.5 mg PO QHS cyclobenzaprine 5 mg tablet 5 mg PO BEDTIME meclizine 25 mg Tablet 25 mg PO QID PRN (Reason: dizziness) Qty: 60 0RF metoclopramide HCl [Reglan] 10 mg tablet 10 mg PO Q6H PRN (Reason: nausea and vomiting) Qty: 30 0RF Discontinued dextromethorphan HBr 15 mg capsule 15 mg PO Q6-8H PRN (Reason: cough) Qty: 30 0RF Quercetin Complex 500-250-33 mg capsule 1 cap PO DAILY Did you review [place] OFFICE PROFESSIONAL for ALL controlled substances?: No Discussed opioids are addictive and Narcan is available by prescription or from pharmacy.: No Condition: Fair Referrals: TIM WILL [Primary Care Provider, [employer] SERV[employer] SPECIALIST] - 04/05/25 10:00 am
[2025-04-01 11:54] VITALS: BP 147/82; PULSE 77; RESP 14; TEMP 98.4
== END 2025-04-01 14:00 | disposition home or self-care (01) | DRG 190 ==
LOC: MEDSURG B 12:27 → ED 12:27 → MEDSURG B 15:10
PROVIDERS: ADMIT Hospitalist; ATTEND Nurse Practitioner Family